=== PATIENT | male | born 1965 | race Caucasian/White ===

== ENCOUNTER 2020-10-15 14:19 | Inpatient (IN) | payer MEDICAID, OTHER ==
[~2020-10-15] VITALS: Ht 180.3 cm; Wt 108.0 kg
[2020-10-15] MEDS ORDERED: cloNIDine HCL 0.1 MG TAB PO ONE (15:00)
[2020-10-15 15:13] LABS: Basophils # (auto) 0.1 10 ^3/uL (0-0.2); Basophils % (auto) 0.8 % (0.0-2.0); Eosinophils # (auto) 0.3 10 ^3/uL (0-0.8); Eosinophils % (auto) 3.5 % (0.0-7.0); Hematocrit 47.1 % (41.0-53.0); Hemoglobin 16.2 g/dL (13.5-17.5); Lymphocytes # (auto) 1.7 10 ^3/uL (0.4-5.4); Lymphocytes % (auto) 22.6 % (10.0-50.0); Mean Corpuscular Hemoglobin 31.7 pg (28.0-32.0); Mean Corpuscular Hgb Conc. 34.4 g/dL (32.0-36.0); Monocytes # (auto) 0.9 10 ^3/uL (0-1.3); Monocytes % (auto) 11.5 % (0.0-12.0); Neutrophils # (auto) 4.6 10 ^3/uL (1.6-8.6); Neutrophils % (auto) 61.6 % (37.0-80.0); Platelet Count (auto) 232 10^3/uL (140-450); Red Blood Cells 5.12 10^6/uL (4.5-5.90); Red Cell Distribution Width 14.8 % (11.8-14.3); White Blood Cell 7.5 10^3/uL (4.4-10.8)
[2020-10-15 15:30] LABS: Alanine Aminotransferase 39 U/L (16-61); Albumin 3.9 g/dL (3.4-5.0); Aspartate Aminotransferase 28 U/L (15-37); BUN/Creatinine Ratio 12.6; Blood Urea Nitrogen 14 mg/dL (7-18); Calcium 8.4 mg/dL (8.5-10.1); Carbon Dioxide 30 mmol/L (21-32); GFR African American 89 mL/min; GFR Non-African American 74 mL/min; Glucose 89 mg/dL (74-106); Magnesium 2.3 mg/dL (1.6-2.6)
[2020-10-15 15:35] LABS: Alkaline Phosphatase 98 U/L (45-117); Bilirubin, Total 0.4 mg/dL (0.2-1.0); Total Protein 7.8 g/dL (6.4-8.2)
[2020-10-15 15:48] LABS: Sodium 141 mmol/L (136-145)
[2020-10-15 15:49] LABS: Anion Gap 6 (5-15); Chloride 105 mmol/L (98-107)
[2020-10-15] MEDS ORDERED: hydrALAZINE HCL 20 MG/ML VL IV ONE (17:15)
[2020-10-15] MEDS ORDERED: MORPHINE SULFATE 4 MG/ML SYR/VIAL IV ONE (17:30)
[2020-10-15] MEDS ORDERED: ONDANSETRON HCL 4 MG/2 ML VIAL IV ONE (17:30)
[2020-10-15] MEDS ORDERED: MORPHINE SULF INJ 2 MG/ML SYRINGE 1ML IV PRN (22:15)
[2020-10-15] MEDS ORDERED: NITROGLYCERIN 0.4 MG SL TAB SL PRN (22:15)
[2020-10-15] MEDS ORDERED: DEXTROSE (50%) 50ML SYRG IV PRN (22:15)
[2020-10-15] MEDS ORDERED: ACETAMINOPHEN 325 MG TAB PO PRN (22:15)
[2020-10-15] MEDS ORDERED: ONDANSETRON HCL 4 MG/2 ML VIAL IV PRN (22:15)
[2020-10-15] MEDS ORDERED: HYDROcodone-ACET 5/325MG TAB PO PRN (22:15)
[2020-10-15 23:01] LABS: Alcohol, Urine < 3.0 mg/dL (0-10); Amphetamine Screen, Urine NEGATIVE (NEGATIVE); Barbiturate Scree,Urine NEGATIVE (NEGATIVE); Benzodiazephine Screen, Urine NEGATIVE (NEGATIVE); Cannabinoid Screen, Urine NEGATIVE (NEGATIVE); Cocaine Screen, Urine NEGATIVE (NEGATIVE); Opiate Scree,Urine POSITIVE (NEGATIVE); Phencyclidine Screen, Urine NEGATIVE (NEGATIVE)
[2020-10-16] VITALS (7 sets, daily range): BP systolic 114–150; BP diastolic 69–111
[2020-10-16] MEDS ORDERED: METF-370 PO (06:23)
[2020-10-16] MEDS ORDERED: SACU1TAB7 PO (06:23)
[2020-10-16] MEDS ORDERED: RIVA20TA PO (06:23)
[2020-10-16] MEDS ORDERED: ASPI-543 PO (06:23)
[2020-10-16] MEDS ORDERED: FURO1TAB31 PO (06:23)
[2020-10-16] MEDS ORDERED: HYDR-4296 PO ×2 (06:23→17:05)
[2020-10-16] MEDS ORDERED: ATO40T PO (06:23)
[2020-10-16] MEDS ORDERED: MET50T GT (06:23)
[2020-10-16] MEDS ORDERED: AMIO200T33 PO (06:23)
[2020-10-16] MEDS: InsuLIN REG 1unit/0.01ml Soln (100units/ml) SC SCH ×3 (06:34→17:00)
[2020-10-16] MEDS: ACCU-CHEK COMFORT CURVE STRIP VI SCH ×3 (06:34→17:00)
[2020-10-16] MEDS ORDERED: LISINOPRIL 10 MG TAB PO SCH (10:00)
[2020-10-16] MEDS ORDERED: METOPROLOL TARTRATE 25 MG TAB PO SCH (10:00)
[2020-10-16] MEDS ORDERED: CLON0.1T PO (17:05)
== END 2020-10-16 18:42 | disposition home or self-care (01) | DRG 45 ==
LOC: ER 14:19 → TELE 21:35 → TELE-EAST 23:41
PROVIDERS: ADMIT Hospitalist; ATTEND Hospitalist
DX: I63.9 Cerebral infarction, unspecified (principal); E11.9 Type 2 diabetes mellitus without complications; I10 Essential (primary) hypertension; Z20.822 Contact with and (suspected) exposure to COVID-19; E78.5 Hyperlipidemia, unspecified; Z79.01 Long term (current) use of anticoagulants; Z79.82 Long term (current) use of aspirin; Z79.899 Other long term (current) drug therapy; Z86.73 Personal history of transient ischemic attack (TIA), and cerebral infarction without residual deficits; Z83.3 Family history of diabetes mellitus; G47.33 Obstructive sleep apnea (adult) (pediatric); E66.9 Obesity, unspecified; R51.9 Headache, unspecified; Z68.33 Body mass index [BMI] 33.0-33.9, adult; I25.2 Old myocardial infarction
CPT/HCPCS: 36415; 70450; 70545; 70551; 71046; 80053; 80307; 82962; 83735; 84484; 85025; 85379; 87081; 87426; 93005; 96374; 96375; G0378; J1815; J2405

== ENCOUNTER 2021-01-18 09:55 | Inpatient (IN) | payer MEDICAID ==
[~2021-01-18] VITALS: Ht 180.3 cm; Wt 109.0 kg
[~2021-01-18 09:55] MED LIST: AMIO200T33 PO; ASPI-543 PO; ATO40T PO; CLON0.1T PO; FURO1TAB31 PO; HYDR-4296 PO; MET50T GT; METF-370 PO; RIVA20TA PO; SACU1TAB7 PO
[2021-01-18] MEDS ORDERED: cloNIDine HCL 0.1 MG TAB PO ONE ×2 (10:30→17:00)
[2021-01-18] MEDS ORDERED: SODIUM CHLORIDE 0.9% 1,000 ML IV ONE ×2 (10:30→18:30)
[2021-01-18] MEDS ORDERED: AMIODARONE HCL 200 MG TAB PO ONE (10:30)
[2021-01-18] MEDS ORDERED: LORazepam 2MG/ML-1ML VIAL IV ONE (15:00)
[2021-01-18] MEDS ORDERED: LABETALOL HCL 5 MG/ML 4ML SYRINGE IV ONE ×2 (15:15→18:00)
[2021-01-18] MEDS ORDERED: MORPHINE SULFATE INJECTION 2 MG/2 ML SYRG IV PRN (18:30)
[2021-01-18] MEDS ORDERED: DIGOXIN (250MCG/ML) 2 ML AMPULE IV PRN (18:30)
[2021-01-18] MEDS ORDERED: AMIODARONE HCL 150 MG in D5W 5% 100 ML IV ONE (18:30)
[2021-01-18] MEDS ORDERED: NITROGLYCERIN 0.4 MG SL TAB SL PRN (18:30)
[2021-01-18 18:31] LABS: Basophils # (auto) 0 10 ^3/uL (0-0.2); Basophils % (auto) 0.6 % (0.0-2.0); Eosinophils # (auto) 0.2 10 ^3/uL (0-0.8); Eosinophils % (auto) 2.5 % (0.0-7.0); Hematocrit 46.2 % (41.0-53.0); Hemoglobin 15.5 g/dL (13.5-17.5); Lymphocytes # (auto) 0.9 10 ^3/uL (0.4-5.4); Lymphocytes % (auto) 14.1 % (10.0-50.0); Mean Corpuscular Hemoglobin 31.4 pg (28.0-32.0); Mean Corpuscular Hgb Conc. 33.6 g/dL (32.0-36.0); Mean Corpuscular Volume 93.3 fL (80.0-100.0); Monocytes # (auto) 0.6 10 ^3/uL (0-1.3); Monocytes % (auto) 10.6 % (0.0-12.0); Neutrophils # (auto) 4.4 10 ^3/uL (1.6-8.6); Neutrophils % (auto) 72.2 % (37.0-80.0); Nucleated Red Blood Cells % 0.1 %; Red Blood Cells 4.95 10^6/uL (4.5-5.90); Red Cell Distribution Width 13.3 % (11.8-14.3); White Blood Cell 6.1 10^3/uL (4.4-10.8)
[2021-01-18] MEDS ORDERED: METOPROLOL TARTRATE 1MG/1ML-5ML VIAL IV PRN (18:45)
[2021-01-18 18:54] LABS: Chloride 104 mmol/L (98-107); Potassium 3.6 mmol/L (3.5-5.1); Sodium 140 mmol/L (136-145)
[2021-01-18 19:04] LABS: Alanine Aminotransferase 30 U/L (16-61); Albumin 2.8 g/dL (3.4-5.0); Alkaline Phosphatase 87 U/L (45-117); Anion Gap 5 (5-15); Aspartate Aminotransferase 20 U/L (15-37); BUN/Creatinine Ratio 13.8; Bilirubin, Total 0.9 mg/dL (0.2-1.0); Blood Urea Nitrogen 18 mg/dL (7-18); Calcium 7.9 mg/dL (8.5-10.1); Carbon Dioxide 31 mmol/L (21-32); GFR African American 74 mL/min; GFR Non-African American 61 mL/min; Glucose 104 mg/dL (74-106); Total Protein 6.4 g/dL (6.4-8.2)
[2021-01-18] MEDS: dilTIAZem 120MG ER CAP PO SCH (21:48)
[2021-01-18] MEDS: LABETALOL HCL 200 MG TAB PO SCH (21:49)
[2021-01-18] MEDS ORDERED: AMIODARONE HCL 200 MG TAB PO SCH (22:00)
[2021-01-19 02:40] LABS: Alcohol, Urine < 3.0 mg/dL (0-10); Amphetamine Screen, Urine POSITIVE (NEGATIVE); Barbiturate Scree,Urine NEGATIVE (NEGATIVE); Benzodiazephine Screen, Urine NEGATIVE (NEGATIVE); Cannabinoid Screen, Urine POSITIVE (NEGATIVE); Cocaine Screen, Urine NEGATIVE (NEGATIVE); Opiate Scree,Urine NEGATIVE (NEGATIVE); Phencyclidine Screen, Urine NEGATIVE (NEGATIVE)
[2021-01-19 02:52] VITALS: BP 126/70
[2021-01-19 03:03] LABS: Urine Bacteria NONE SEEN /hpf (None Seen); Urine Blood Negative /uL (Negative); Urine Specific Gravity 1.022 (1.001-1.035); Urine WBC 5 /hpf (0 - 3)
[2021-01-19 05:00] VITALS: BP 117/65
[2021-01-19 06:31] LABS: INR 1.18 (0.9-1.15); Partial Thromboplastin Time 24.8 sec (23.6-33.0)
[2021-01-19 07:02] LABS: Chloride 106 mmol/L (98-107); Potassium 3.6 mmol/L (3.5-5.1); Sodium 139 mmol/L (136-145)
[2021-01-19 07:13] LABS: Anion Gap 5 (5-15); BUN/Creatinine Ratio 14.3; Blood Urea Nitrogen 14 mg/dL (7-18); Carbon Dioxide 28 mmol/L (21-32); GFR African American 103 mL/min; GFR Non-African American 85 mL/min; Glucose 118 mg/dL (74-106)
[2021-01-19 08:00] VITALS: BP 112/84
[2021-01-19] MEDS: LABETALOL HCL 200 MG TAB PO SCH (10:00)
[2021-01-19] MEDS: dilTIAZem 120MG ER CAP PO SCH (10:08)
[2021-01-19] MEDS ORDERED: SACU1TAB7 PO (10:42)
[2021-01-19] MEDS ORDERED: RIVA20TA PO (10:42)
[2021-01-19] MEDS ORDERED: FURO1TAB31 PO (10:42)
[2021-01-19] MEDS ORDERED: METF-370 PO (10:42)
[2021-01-19] MEDS ORDERED: AMIO200T33 PO (10:42)
[2021-01-19] MEDS ORDERED: HYDR-4296 PO (10:42)
[2021-01-19] MEDS ORDERED: MET50T PO (10:42)
[2021-01-19 16:25] VITALS: BP 112/84
[2021-01-19] MEDS ORDERED: RIVAROXABAN 20 MG TAB PO SCH (18:00)
== END 2021-01-19 18:15 | disposition home or self-care (01) | DRG 201 ==
LOC: ER 09:55 → EDBD 09:55 → TELE 18:25 → TELE-WESTW 23:56
PROVIDERS: ADMIT Hospitalist; ATTEND Hospitalist
DX: I48.92 Unspecified atrial flutter (principal); I11.9 Hypertensive heart disease without heart failure; E11.9 Type 2 diabetes mellitus without complications; I48.20 Chronic atrial fibrillation, unspecified; Z20.822 Contact with and (suspected) exposure to COVID-19; E78.00 Pure hypercholesterolemia, unspecified; F15.10 Other stimulant abuse, uncomplicated; I25.5 Ischemic cardiomyopathy; Z59.0 Homelessness; Z82.49 Family history of ischemic heart disease and other diseases of the circulatory system; Z83.3 Family history of diabetes mellitus; Z86.73 Personal history of transient ischemic attack (TIA), and cerebral infarction without residual deficits; Z91.14 Patient's other noncompliance with medication regimen
CPT/HCPCS: 36415; 71045; 80048; 80053; 80307; 81001; 83880; 84439; 84443; 84484; 85025; 85610; 85730; 87081; 87426; 93005; 93306; 96361; 96374; 96375; G0378; J3490; J7060

== ENCOUNTER 2021-02-09 11:46 | Inpatient (IN) | payer MEDICAID ==
[~2021-02-09] VITALS: Ht 180.3 cm; Wt 112.6 kg
[~2021-02-09 11:46] MED LIST changes: -MET50T GT; +MET50T PO
[2021-02-09] MEDS ORDERED: ONDANSETRON HCL 4 MG/2 ML VIAL IV ONE (12:00)
[2021-02-09] MEDS ORDERED: SODIUM CHLORIDE 0.9% 1,000 ML IVB ONE (12:00)
[2021-02-09] MEDS ORDERED: MORPHINE SULFATE 4 MG/ML SYR/VIAL IV ONE (12:00)
[2021-02-09 12:24] LABS: Basophils # (auto) 0 10 ^3/uL (0-0.2); Basophils % (auto) 0.4 % (0.0-2.0); Eosinophils # (auto) 0.3 10 ^3/uL (0-0.8); Eosinophils % (auto) 4.2 % (0.0-7.0); Hematocrit 49.1 % (41.0-53.0); Hemoglobin 16.2 g/dL (13.5-17.5); Lymphocytes # (auto) 1.4 10 ^3/uL (0.4-5.4); Lymphocytes % (auto) 19.5 % (10.0-50.0); Mean Corpuscular Hemoglobin 30.6 pg (28.0-32.0); Mean Corpuscular Volume 92.8 fL (80.0-100.0); Monocytes # (auto) 0.5 10 ^3/uL (0-1.3); Monocytes % (auto) 6.4 % (0.0-12.0); Neutrophils % (auto) 69.5 % (37.0-80.0); Nucleated Red Blood Cells % 0.1 %; Red Blood Cells 5.29 10^6/uL (4.5-5.90); Red Cell Distribution Width 13.5 % (11.8-14.3); White Blood Cell 7.2 10^3/uL (4.4-10.8)
[2021-02-09 12:36] LABS: Albumin 3.5 g/dL (3.4-5.0); Alcohol, Urine < 3.0 mg/dL (0-10); Amphetamine Screen, Urine NEGATIVE (NEGATIVE); Anion Gap 7 (5-15); Barbiturate Scree,Urine NEGATIVE (NEGATIVE); Benzodiazephine Screen, Urine NEGATIVE (NEGATIVE); Blood Urea Nitrogen 16 mg/dL (7-18); Calcium 8.5 mg/dL (8.5-10.1); Cannabinoid Screen, Urine POSITIVE (NEGATIVE); Carbon Dioxide 26 mmol/L (21-32); Chloride 106 mmol/L (98-107); Cocaine Screen, Urine NEGATIVE (NEGATIVE); Glucose 169 mg/dL (74-106); Lipase 192 U/L (73-393); Magnesium 2.5 mg/dL (1.6-2.6); Opiate Scree,Urine NEGATIVE (NEGATIVE); Phencyclidine Screen, Urine NEGATIVE (NEGATIVE); Potassium 3.4 mmol/L (3.5-5.1); Sodium 139 mmol/L (136-145)
[2021-02-09 12:37] LABS: Urine Bacteria NONE SEEN /hpf (None Seen); Urine Blood Negative /uL (Negative); Urine Mucus FEW (None Seen); Urine Specific Gravity 1.027 (1.001-1.035); Urine WBC 3 /hpf (0 - 3)
[2021-02-09 12:42] LABS: Alanine Aminotransferase 27 U/L (16-61); Alkaline Phosphatase 100 U/L (45-117); Aspartate Aminotransferase 20 U/L (15-37); BUN/Creatinine Ratio 13.4; Bilirubin, Total 0.6 mg/dL (0.2-1.0); GFR African American 82 mL/min; GFR Non-African American 68 mL/min; Total Protein 7.8 g/dL (6.4-8.2)
[2021-02-09] MEDS ORDERED: dilTIAZem 25 MG/5 ML VIAL IV ONE (13:15)
[2021-02-09] MEDS ORDERED: DEXTROSE (50%) 50ML SYRG IV PRN (13:45)
[2021-02-09] MEDS ORDERED: cloNIDine HCL 0.1 MG TAB PO PRN (13:45)
[2021-02-09] MEDS ORDERED: AMIODARONE HCL 150 MG in D5W 5% 100 ML IV ONE (13:45)
[2021-02-09] MEDS ORDERED: NITROGLYCERIN 0.4 MG SL TAB SL PRN (13:45)
[2021-02-09] MEDS ORDERED: MORPHINE SULFATE INJECTION 2 MG/ML SYRG IV PRN ×2 (13:45)
[2021-02-09] MEDS: ACCU-CHEK COMFORT CURVE STRIP VI SCH ×2 (17:00→23:00)
[2021-02-09] MEDS: InsuLIN REG 1unit/0.01ml Soln (100units/ml) SC SCH ×2 (17:00→23:00)
[2021-02-09] MEDS: hydrALAZINE HCL 25 MG TAB PO SCH ×2 (18:08→21:49)
[2021-02-09] MEDS: RIVAROXABAN 20 MG TAB PO SCH (18:13)
[2021-02-09] MEDS ORDERED: LABETALOL HCL 5 MG/ML 4ML SYRINGE IV PRN (19:15)
[2021-02-09] MEDS: METOPROLOL TARTRATE 50 MG TAB PO SCH (21:49)
[2021-02-09] MEDS: AMIODARONE HCL 200 MG TAB PO SCH (21:49)
[2021-02-09 21:58] VITALS: BP 138/110
[2021-02-09 23:00] VITALS: BP 138/110
[2021-02-09] MEDS: MORPHINE SULFATE 4 MG/ML SYR/VIAL IV PRN (23:30)
[2021-02-10] MEDS ORDERED: BUPR1TAB11 PO (02:59)
[2021-02-10 05:00] VITALS: BP 132/106
[2021-02-10] MEDS: hydrALAZINE HCL 25 MG TAB PO SCH ×3 (06:45→21:47)
[2021-02-10] MEDS: ACCU-CHEK COMFORT CURVE STRIP VI SCH ×4 (06:51→21:48)
[2021-02-10] MEDS: InsuLIN REG 1unit/0.01ml Soln (100units/ml) SC SCH ×4 (06:51→21:48)
[2021-02-10] MEDS: MORPHINE SULFATE 4 MG/ML SYR/VIAL IV PRN (06:52)
[2021-02-10 08:00] VITALS: BP 135/93
[2021-02-10 09:00] VITALS: BP 135/93
[2021-02-10] MEDS: AMIODARONE HCL 200 MG TAB PO SCH ×2 (09:41→21:47)
[2021-02-10] MEDS: FUROSEMIDE 40 MG TAB PO SCH (09:41)
[2021-02-10] MEDS: METOPROLOL TARTRATE 50 MG TAB PO SCH ×2 (09:43→21:47)
[2021-02-10] MEDS ORDERED: ASPirin-EC 81 mg tab PO SCH (10:00)
[2021-02-10] MEDS ORDERED: LACTULOSE 20Gm/30ML SOLN PO ONE (12:30)
[2021-02-10 13:00] VITALS: BP_SYST 135; BP_SYST 142; BP_DIAS 88; BP_DIAS 95
[2021-02-10] MEDS: HYDROcodone-ACET 5/325MG TAB PO PRN (13:13)
[2021-02-10 17:00] VITALS: BP 160/77
[2021-02-10] MEDS: RIVAROXABAN 20 MG TAB PO SCH (17:18)
[2021-02-10] MEDS: SENNA 8.6 MG TAB PO SCH (21:46)
[2021-02-10 22:00] VITALS: BP 152/111
[2021-02-11 05:00] VITALS: BP 157/118
[2021-02-11] MEDS: hydrALAZINE HCL 25 MG TAB PO SCH ×3 (06:15→21:33)
[2021-02-11] MEDS: ACCU-CHEK COMFORT CURVE STRIP VI SCH ×4 (06:57→21:34)
[2021-02-11] MEDS: InsuLIN REG 1unit/0.01ml Soln (100units/ml) SC SCH ×4 (06:57→21:34)
[2021-02-11 08:00] VITALS: BP 146/75
[2021-02-11 09:00] VITALS: BP 146/75
[2021-02-11] MEDS: FUROSEMIDE 40 MG TAB PO SCH (10:16)
[2021-02-11] MEDS: METOPROLOL TARTRATE 50 MG TAB PO SCH ×2 (10:16→21:34)
[2021-02-11] MEDS: AMIODARONE HCL 200 MG TAB PO SCH ×2 (10:17→21:34)
[2021-02-11] MEDS: HYDROcodone-ACET 5/325MG TAB PO PRN (10:22)
[2021-02-11] MEDS ORDERED: SENN-62 PO (10:32)
[2021-02-11 13:00] VITALS: BP_SYST 114; BP_SYST 143; BP_DIAS 84; BP_DIAS 90
[2021-02-11 17:00] VITALS: BP 147/113
[2021-02-11] MEDS: RIVAROXABAN 20 MG TAB PO SCH (17:02)
[2021-02-11] MEDS: SENNA 8.6 MG TAB PO SCH (21:34)
[2021-02-11 22:00] VITALS: BP 175/119
[2021-02-12] MEDS ORDERED: ACETAMINOPHEN 325 MG TAB PO PRN (02:45)
[2021-02-12] MEDS ORDERED: ACETAMINOPHEN 325 MG TAB PO ONE (02:48)
[2021-02-12 05:00] VITALS: BP 140/98
[2021-02-12] MEDS: hydrALAZINE HCL 25 MG TAB PO SCH ×2 (06:00→14:03)
[2021-02-12] MEDS: InsuLIN REG 1unit/0.01ml Soln (100units/ml) SC SCH ×2 (06:39→11:30)
[2021-02-12] MEDS: ACCU-CHEK COMFORT CURVE STRIP VI SCH ×2 (06:39→11:30)
[2021-02-12 08:11] LABS: Basophils # (auto) 0 10 ^3/uL (0-0.2); Eosinophils # (auto) 0.7 10 ^3/uL (0-0.8); Eosinophils % (auto) 8.2 % (0.0-7.0); Hematocrit 49.9 % (41.0-53.0); Hemoglobin 16.6 g/dL (13.5-17.5); Lymphocytes # (auto) 0.7 10 ^3/uL (0.4-5.4); Lymphocytes % (auto) 8.2 % (10.0-50.0); Mean Corpuscular Hemoglobin 30.5 pg (28.0-32.0); Mean Corpuscular Hgb Conc. 33.2 g/dL (32.0-36.0); Mean Corpuscular Volume 91.8 fL (80.0-100.0); Monocytes # (auto) 0.5 10 ^3/uL (0-1.3); Monocytes % (auto) 5.9 % (0.0-12.0); Neutrophils # (auto) 6.2 10 ^3/uL (1.6-8.6); Neutrophils % (auto) 77.7 % (37.0-80.0); Red Blood Cells 5.43 10^6/uL (4.5-5.90); Red Cell Distribution Width 13.4 % (11.8-14.3)
[2021-02-12 08:15] LABS: BUN/Creatinine Ratio 15.5; Calcium 8.4 mg/dL (8.5-10.1)
[2021-02-12 08:34] LABS: INR 1.26 (0.9-1.15)
[2021-02-12 08:57] VITALS: BP 156/113
[2021-02-12] MEDS: METOPROLOL TARTRATE 50 MG TAB PO SCH (10:00)
[2021-02-12] MEDS: FUROSEMIDE 40 MG TAB PO SCH (10:00)
[2021-02-12] MEDS: AMIODARONE HCL 200 MG TAB PO SCH (10:00)
[2021-02-12 13:00] VITALS: BP 161/123
[2021-02-12] MEDS ORDERED: MET50T PO (15:17)
[2021-02-12] MEDS ORDERED: AMIO200T33 PO (15:17)
[2021-02-12 17:00] VITALS: BP 160/108
[2021-02-12 17:20] VITALS: BP 156/123
== END 2021-02-12 18:24 | disposition home or self-care (01) | DRG 254 ==
LOC: ER 11:46 → UNDOADMIN 13:32 → TELE-WESTW 13:32 → OVERFLOW 14:14 → TELE-WESTW 22:06
PROVIDERS: ADMIT Hospitalist; ATTEND Hospitalist
DX: K59.00 Constipation, unspecified (principal); I11.0 Hypertensive heart disease with heart failure; I50.9 Heart failure, unspecified; I48.20 Chronic atrial fibrillation, unspecified; E11.9 Type 2 diabetes mellitus without complications; I48.92 Unspecified atrial flutter; Z20.822 Contact with and (suspected) exposure to COVID-19; K80.20 Calculus of gallbladder without cholecystitis without obstruction; F15.10 Other stimulant abuse, uncomplicated; E66.9 Obesity, unspecified; F19.10 Other psychoactive substance abuse, uncomplicated; Z68.34 Body mass index [BMI] 34.0-34.9, adult; Z59.0 Homelessness; Z82.49 Family history of ischemic heart disease and other diseases of the circulatory system; Z86.73 Personal history of transient ischemic attack (TIA), and cerebral infarction without residual deficits; Z90.49 Acquired absence of other specified parts of digestive tract
CPT/HCPCS: 36415; 74176; 80048; 80053; 80307; 81001; 82962; 83690; 83735; 84484; 85025; 85610; 85730; 86850; 86900; 86901; 87081; 87426; 93005; 93925; 96365; 96375; G0378; J2405; J7060

== ENCOUNTER 2021-04-30 07:20 | Inpatient (IN) | payer MEDICAID ==
[~2021-04-30] VITALS: Ht 180.3 cm; Wt 117.0 kg
[~2021-04-30 07:20] MED LIST changes: +BUPR1TAB11 PO; +SENN-62 PO
[2021-04-30] MEDS ORDERED: SODIUM CHLORIDE 0.9% 1,000 ML IV ONE (07:45)
[2021-04-30 08:15] LABS: Basophils # (auto) 0 10 ^3/uL (0-0.2); Basophils % (auto) 0.4 % (0.0-2.0); Eosinophils # (auto) 0.2 10 ^3/uL (0-0.8); Eosinophils % (auto) 2.1 % (0.0-7.0); Hematocrit 45.7 % (41.0-53.0); Hemoglobin 15.4 g/dL (13.5-17.5); Lymphocytes # (auto) 0.9 10 ^3/uL (0.4-5.4); Lymphocytes % (auto) 8.2 % (10.0-50.0); Mean Corpuscular Hemoglobin 30.9 pg (28.0-32.0); Mean Corpuscular Hgb Conc. 33.7 g/dL (32.0-36.0); Mean Corpuscular Volume 91.8 fL (80.0-100.0); Monocytes # (auto) 0.7 10 ^3/uL (0-1.3); Monocytes % (auto) 6.4 % (0.0-12.0); Neutrophils # (auto) 8.9 10 ^3/uL (1.6-8.6); Neutrophils % (auto) 82.9 % (37.0-80.0); Red Blood Cells 4.98 10^6/uL (4.5-5.90); Red Cell Distribution Width 14.3 % (11.8-14.3); White Blood Cell 10.8 10^3/uL (4.4-10.8)
[2021-04-30 08:32] LABS: INR 1.18 (0.9-1.15); Partial Thromboplastin Time 24.9 sec (23.6-33.0)
[2021-04-30 08:33] LABS: Albumin 3.5 g/dL (3.4-5.0); Calcium 8.3 mg/dL (8.5-10.1); Potassium 3.9 mmol/L (3.5-5.1)
[2021-04-30 08:39] LABS: BUN/Creatinine Ratio 15.2; Bilirubin, Total 0.7 mg/dL (0.2-1.0)
[2021-04-30] MEDS ORDERED: ONDANSETRON HCL 4 MG/2 ML VIAL IV ONE (10:00)
[2021-04-30] MEDS ORDERED: MORPHINE SULFATE INJECTION 2 MG/ML SYRG IV ONE (10:00)
[2021-04-30] MEDS ORDERED: LORazepam 2MG/ML-1ML VIAL IV ONE (13:30)
[2021-04-30] MEDS ORDERED: dilTIAZem 25 MG/5 ML VIAL IV ONE (13:30)
[2021-04-30] MEDS ORDERED: dilTIAZem 125mg/125ml BAG KIT 125 ML IV ONE (13:30)
[2021-04-30] MEDS ORDERED: METOPROLOL TARTRATE 1MG/1ML-5ML VIAL IV ONE (13:30)
[2021-04-30] MEDS ORDERED: MORPHINE SULFATE 4 MG/ML SYR/VIAL IV ONE (13:30)
[2021-04-30] MEDS ORDERED: DIGOXIN (250MCG/ML) 2 ML AMPULE IV PRN (14:45)
[2021-04-30] MEDS ORDERED: ONDANSETRON HCL 4 MG/2 ML VIAL IV PRN (14:45)
[2021-04-30] MEDS ORDERED: NITROGLYCERIN 0.4 MG SL TAB SL PRN (14:45)
[2021-04-30] MEDS ORDERED: METOPROLOL TARTRATE 25 MG TAB PO ONE (14:45)
[2021-04-30] MEDS ORDERED: MORPHINE SULFATE INJECTION 2 MG/ML SYRG IV PRN (14:45)
[2021-04-30] MEDS: HYDROcodone-ACET 5/325MG TAB PO PRN (21:02)
[2021-04-30 21:07] LABS: Urine Bacteria NONE SEEN /hpf (None Seen); Urine Blood Negative /uL (Negative); Urine Hyaline Cast FEW /lpf (0 - 2); Urine Mucus FEW (None Seen); Urine WBC 6 /hpf (0 - 3)
[2021-04-30 21:27] LABS: Alcohol, Urine < 3.0 mg/dL (0-10); Amphetamine Screen, Urine NEGATIVE (NEGATIVE); Barbiturate Scree,Urine NEGATIVE (NEGATIVE); Benzodiazephine Screen, Urine NEGATIVE (NEGATIVE); Cannabinoid Screen, Urine NEGATIVE (NEGATIVE); Cocaine Screen, Urine NEGATIVE (NEGATIVE); Opiate Scree,Urine POSITIVE (NEGATIVE); Phencyclidine Screen, Urine NEGATIVE (NEGATIVE)
[2021-04-30] MEDS: METOPROLOL TARTRATE 25 MG TAB PO SCH (23:00)
[2021-05-01] MEDS: HYDROcodone-ACET 5/325MG TAB PO PRN ×3 (03:11→15:11)
[2021-05-01] MEDS: ASPirin-EC 81 mg tab PO SCH (10:07)
[2021-05-01] MEDS: METOPROLOL TARTRATE 25 MG TAB PO SCH ×2 (10:20→23:09)
[2021-05-01] MEDS ORDERED: BUPR-60 PO (13:57)
[2021-05-01] MEDS ORDERED: HYDR25TA87 PO (13:57)
[2021-05-01] MEDS ORDERED: METO-158 PO (13:57)
[2021-05-01] MEDS ORDERED: ATOR40TA52 PO (13:57)
[2021-05-01] MEDS ORDERED: FLUT110A INH (13:57)
[2021-05-01] MEDS ORDERED: CLON0.1T PO (13:58)
[2021-05-01 22:00] VITALS: BP 136/98
[2021-05-01] MEDS: cloNIDine HCL 0.1 MG TAB PO SCH (23:05)
[2021-05-01] MEDS: hydrALAZINE HCL 25 MG TAB PO SCH (23:06)
[2021-05-01] MEDS: AMIODARONE HCL 200 MG TAB PO SCH (23:08)
[2021-05-01] MEDS: SACUBITRIL-VALSARTAN 24mg/26mg TAB PO SCH (23:10)
[2021-05-02] MEDS: HYDROcodone-ACET 5/325MG TAB PO PRN ×2 (00:05→05:01)
[2021-05-02 04:57] VITALS: BP 124/84
[2021-05-02] MEDS: hydrALAZINE HCL 25 MG TAB PO SCH ×2 (05:47→18:27)
[2021-05-02 09:00] VITALS: BP 136/73
[2021-05-02] MEDS: SACUBITRIL-VALSARTAN 24mg/26mg TAB PO SCH (10:16)
[2021-05-02] MEDS: ASPirin-EC 81 mg tab PO SCH (10:16)
[2021-05-02] MEDS: AMIODARONE HCL 200 MG TAB PO SCH (10:16)
[2021-05-02] MEDS: cloNIDine HCL 0.1 MG TAB PO SCH (10:16)
[2021-05-02] MEDS: METOPROLOL TARTRATE 25 MG TAB PO SCH (10:17)
[2021-05-02 12:57] VITALS: BP 118/83
[2021-05-02] MEDS ORDERED: AMIO200T33 PO (15:56)
[2021-05-02] MEDS ORDERED: METO-158 PO (15:56)
[2021-05-02] MEDS ORDERED: HYDR25TA87 PO (15:56)
[2021-05-02 17:13] VITALS: BP 134/82
[2021-05-02] MEDS ORDERED: ATORVASTATIN 20 MG TAB PO SCH (22:00)
== END 2021-05-02 18:42 | disposition home or self-care (01) | DRG 115 ==
LOC: ER 07:20 → EDSEX 07:20 → EDBD 07:20 → TELE 14:48 → TELE-CENTR 05-01 20:32
PROVIDERS: ADMIT Hospitalist; ATTEND Hospitalist
DX: S09.90XA Unspecified injury of head, initial encounter (principal); I11.0 Hypertensive heart disease with heart failure; I50.9 Heart failure, unspecified; I48.20 Chronic atrial fibrillation, unspecified; I95.1 Orthostatic hypotension; E66.9 Obesity, unspecified; S00.01XA Abrasion of scalp, initial encounter; E11.9 Type 2 diabetes mellitus without complications; Z20.822 Contact with and (suspected) exposure to COVID-19; Z59.00 Homelessness unspecified; W18.39XA Other fall on same level, initial encounter; Z82.49 Family history of ischemic heart disease and other diseases of the circulatory system; Z83.3 Family history of diabetes mellitus; Z86.73 Personal history of transient ischemic attack (TIA), and cerebral infarction without residual deficits; Z90.49 Acquired absence of other specified parts of digestive tract; Z68.34 Body mass index [BMI] 34.0-34.9, adult; Y93.89 Activity, other specified; Y92.090 Kitchen in other non-institutional residence as the place of occurrence of the external cause; Y99.8 Other external cause status
CPT/HCPCS: 36415; 70450; 70551; 71045; 71275; 72125; 80053; 80307; 81001; 84484; 85025; 85379; 85610; 85730; 87426; 93005; 96361; 96374; 96375; 99291; G0378; J2405

== ENCOUNTER 2021-06-03 16:16 | Inpatient (IN) | payer MEDICAID ==
[~2021-06-03] VITALS: Ht 180.3 cm; Wt 113.4 kg
[~2021-06-03 16:16] MED LIST changes: -ASPI-543 PO; -ATO40T PO; +ATOR40TA52 PO; +BUPR-60 PO; -BUPR1TAB11 PO; +FLUT110A INH; -FURO1TAB31 PO; -HYDR-4296 PO; +HYDR25TA87 PO; -MET50T PO; +METO-158 PO; -RIVA20TA PO; -SACU1TAB7 PO; -SENN-62 PO
[2021-06-03] MEDS ORDERED: dilTIAZem 125mg/125ml BAG KIT 125 ML IV ONE ×2 (17:20→17:30)
[2021-06-03] MEDS ORDERED: InsuLIN REG 1unit/0.01ml Soln (100units/ml) IV ONE (17:30)
[2021-06-03] MEDS ORDERED: SODIUM CHLORIDE 0.9% 1,000 ML IV ONE (17:30)
[2021-06-03] MEDS ORDERED: dilTIAZem 25 MG/5 ML VIAL IV ONE (17:30)
[2021-06-03 18:15] LABS: INR 1.08 (0.9-1.15); Partial Thromboplastin Time 24.9 sec (23.6-33.0)
[2021-06-03 18:25] LABS: Basophils # (auto) 0 10 ^3/uL (0-0.2); Basophils % (auto) 0.3 % (0.0-2.0); Eosinophils # (auto) 0.1 10 ^3/uL (0-0.8); Eosinophils % (auto) 1.5 % (0.0-7.0); Hematocrit 46.8 % (41.0-53.0); Hemoglobin 15.7 g/dL (13.5-17.5); Lymphocytes # (auto) 1.1 10 ^3/uL (0.4-5.4); Mean Corpuscular Hemoglobin 31.3 pg (28.0-32.0); Mean Corpuscular Hgb Conc. 33.4 g/dL (32.0-36.0); Mean Corpuscular Volume 93.5 fL (80.0-100.0); Monocytes # (auto) 0.7 10 ^3/uL (0-1.3); Monocytes % (auto) 7.4 % (0.0-12.0); Neutrophils # (auto) 7.5 10 ^3/uL (1.6-8.6); Neutrophils % (auto) 78.8 % (37.0-80.0); Nucleated Red Blood Cells % 0.7 %; Red Blood Cells 5.01 10^6/uL (4.5-5.90); Red Cell Distribution Width 13.5 % (11.8-14.3); White Blood Cell 9.5 10^3/uL (4.4-10.8)
[2021-06-03 18:35] LABS: Albumin 3.9 g/dL (3.4-5.0); Calcium 8.7 mg/dL (8.5-10.1); Magnesium 3.1 mg/dL (1.6-2.6); Potassium 3.9 mmol/L (3.5-5.1)
[2021-06-03 18:38] LABS: BUN/Creatinine Ratio 14.9; Bilirubin, Total 0.6 mg/dL (0.2-1.0); Total Protein 7.6 g/dL (6.4-8.2)
[2021-06-03] MEDS ORDERED: ENOXAPARIN SOD 120 MG/0.8 ML SYRINGE SC ONE (18:45)
[2021-06-03] MEDS ORDERED: HYDROcodone-ACET 5/325MG TAB PO PRN (19:00)
[2021-06-03] MEDS ORDERED: ACETAMINOPHEN 325 MG TAB PO PRN (19:00)
[2021-06-03] MEDS ORDERED: MORPHINE SULFATE INJECTION 2 MG/ML SYRG IV PRN ×2 (19:00)
[2021-06-03] MEDS ORDERED: ONDANSETRON HCL 4 MG/2 ML VIAL IV PRN (19:00)
[2021-06-03] MEDS ORDERED: NITROGLYCERIN 0.4 MG SL TAB SL PRN (19:00)
[2021-06-03] MEDS ORDERED: hydrALAZINE HCL 20 MG/ML VL IV PRN (19:15)
[2021-06-03] MEDS: SODIUM CHLORIDE 0.9% 1,000 ML IV SCH (19:30)
[2021-06-03 20:50] LABS: Urine Bacteria NONE SEEN /hpf (None Seen); Urine Blood Negative /uL (Negative); Urine Specific Gravity 1.034 (1.001-1.035); Urine WBC 2 /hpf (0 - 3)
[2021-06-03 21:32] LABS: Alcohol, Urine < 3.0 mg/dL (0-10); Amphetamine Screen, Urine NEGATIVE (NEGATIVE); Barbiturate Scree,Urine NEGATIVE (NEGATIVE); Benzodiazephine Screen, Urine NEGATIVE (NEGATIVE); Cannabinoid Screen, Urine NEGATIVE (NEGATIVE); Cocaine Screen, Urine NEGATIVE (NEGATIVE); Opiate Scree,Urine NEGATIVE (NEGATIVE); Phencyclidine Screen, Urine NEGATIVE (NEGATIVE)
[2021-06-03] MEDS: AMIODARONE HCL 200 MG TAB PO SCH (22:04)
[2021-06-03] MEDS: cloNIDine HCL 0.1 MG TAB PO SCH (22:04)
[2021-06-03] MEDS: METOPROLOL TARTRATE 25 MG TAB PO SCH (22:05)
[2021-06-03] MEDS ORDERED: ENALAPRILAT 1.25 MG/ML-1ML VIAL IV ONE (23:30)
[2021-06-04] MEDS: cloNIDine HCL 0.1 MG TAB PO SCH (09:33)
[2021-06-04] MEDS: AMIODARONE HCL 200 MG TAB PO SCH (09:33)
[2021-06-04] MEDS: METOPROLOL TARTRATE 25 MG TAB PO SCH (09:34)
[2021-06-04] MEDS ORDERED: ENOXAPARIN SOD 120 MG/0.8 ML SYRINGE SC SCH (10:00)
[2021-06-04 11:00] LABS: Basophils # (auto) 0 10 ^3/uL (0-0.2); Basophils % (auto) 0.5 % (0.0-2.0); Eosinophils # (auto) 0.2 10 ^3/uL (0-0.8); Eosinophils % (auto) 2.5 % (0.0-7.0); Hematocrit 41.6 % (41.0-53.0); Hemoglobin 13.8 g/dL (13.5-17.5); Lymphocytes # (auto) 0.9 10 ^3/uL (0.4-5.4); Mean Corpuscular Hgb Conc. 33.2 g/dL (32.0-36.0); Mean Corpuscular Volume 93.5 fL (80.0-100.0); Monocytes # (auto) 0.3 10 ^3/uL (0-1.3); Monocytes % (auto) 5.2 % (0.0-12.0); Neutrophils # (auto) 4.7 10 ^3/uL (1.6-8.6); Neutrophils % (auto) 76.8 % (37.0-80.0); Red Blood Cells 4.45 10^6/uL (4.5-5.90); Red Cell Distribution Width 13.4 % (11.8-14.3); White Blood Cell 6.1 10^3/uL (4.4-10.8)
[2021-06-04 11:16] LABS: Albumin 3.2 g/dL (3.4-5.0); Potassium 4.1 mmol/L (3.5-5.1)
[2021-06-04 11:22] LABS: BUN/Creatinine Ratio 14.2; Bilirubin, Total 0.9 mg/dL (0.2-1.0); Total Protein 6.2 g/dL (6.4-8.2)
[2021-06-04] MEDS: SODIUM CHLORIDE 0.9% 1,000 ML IV SCH (11:41)
[2021-06-04 14:40] VITALS: BP 149/114
[2021-06-04] MEDS ORDERED: AMIO200T33 PO (14:59)
[2021-06-04] MEDS ORDERED: ATORVASTATIN 20 MG TAB PO SCH (22:00)
== END 2021-06-04 15:01 | disposition home or self-care (01) | DRG 201 ==
LOC: ER 16:16 → TELE 18:57
PROVIDERS: ADMIT Internal Medicine; ATTEND Internal Medicine
DX: I48.91 Unspecified atrial fibrillation (principal); I42.9 Cardiomyopathy, unspecified; G47.30 Sleep apnea, unspecified; E11.9 Type 2 diabetes mellitus without complications; I16.0 Hypertensive urgency; E78.5 Hyperlipidemia, unspecified; F12.90 Cannabis use, unspecified, uncomplicated; F17.210 Nicotine dependence, cigarettes, uncomplicated; I10 Essential (primary) hypertension; Z20.822 Contact with and (suspected) exposure to COVID-19; E66.9 Obesity, unspecified; R00.0 Tachycardia, unspecified; Z86.73 Personal history of transient ischemic attack (TIA), and cerebral infarction without residual deficits; Z59.00 Homelessness unspecified; Z79.899 Other long term (current) drug therapy; Z82.49 Family history of ischemic heart disease and other diseases of the circulatory system; Z83.3 Family history of diabetes mellitus; Z90.49 Acquired absence of other specified parts of digestive tract; Z68.34 Body mass index [BMI] 34.0-34.9, adult; Z79.01 Long term (current) use of anticoagulants
CPT/HCPCS: 36415; 70450; 71045; 80053; 80307; 81001; 82962; 83735; 83880; 84484; 85025; 85610; 85730; 87426; 93005; 93306; 96365; 96376; 99291; G0378

== ENCOUNTER 2021-06-15 03:34 | Emergency (ER) | payer MEDICAID ==
[~2021-06-15] VITALS: Ht 170.2 cm; Wt 113.9 kg
[2021-06-15] MEDS ORDERED: dilTIAZem 25 MG/5 ML VIAL IV ONE ×4 (03:55→14:30)
[2021-06-15 04:44] LABS: Basophils # (auto) 0 10 ^3/uL (0-0.2); Basophils % (auto) 0.4 % (0.0-2.0); Eosinophils # (auto) 0.1 10 ^3/uL (0-0.8); Eosinophils % (auto) 0.6 % (0.0-7.0); Hematocrit 48.9 % (41.0-53.0); Hemoglobin 16.1 g/dL (13.5-17.5); Lymphocytes # (auto) 0.8 10 ^3/uL (0.4-5.4); Lymphocytes % (auto) 10.5 % (10.0-50.0); Mean Corpuscular Hemoglobin 30.8 pg (28.0-32.0); Mean Corpuscular Hgb Conc. 32.9 g/dL (32.0-36.0); Mean Corpuscular Volume 93.6 fL (80.0-100.0); Monocytes # (auto) 0.4 10 ^3/uL (0-1.3); Monocytes % (auto) 5.3 % (0.0-12.0); Neutrophils # (auto) 6.7 10 ^3/uL (1.6-8.6); Neutrophils % (auto) 83.2 % (37.0-80.0); Nucleated Red Blood Cells % 0.1 %; Red Blood Cells 5.22 10^6/uL (4.5-5.90); Red Cell Distribution Width 12.8 % (11.8-14.3); White Blood Cell 8.1 10^3/uL (4.4-10.8)
[2021-06-15 05:01] LABS: Calcium 8.8 mg/dL (8.5-10.1); Potassium 4.1 mmol/L (3.5-5.1)
[2021-06-15 05:06] LABS: Bilirubin, Total 0.8 mg/dL (0.2-1.0); Total Protein 7.5 g/dL (6.4-8.2)
[2021-06-15 05:33] LABS: BUN/Creatinine Ratio 10.7
[2021-06-15] MEDS ORDERED: SODIUM CHLORIDE 0.9% 2,000 ML IV ONE (05:45)
[2021-06-15] MEDS ORDERED: InsuLIN REG 1unit/0.01ml Soln (100units/ml) IV ONE (05:45)
[2021-06-15 07:58] LABS: Alcohol, Urine < 3.0 mg/dL (0-10); Amphetamine Screen, Urine NEGATIVE (NEGATIVE); Barbiturate Scree,Urine NEGATIVE (NEGATIVE); Benzodiazephine Screen, Urine NEGATIVE (NEGATIVE); Cannabinoid Screen, Urine NEGATIVE (NEGATIVE); Cocaine Screen, Urine NEGATIVE (NEGATIVE); Opiate Scree,Urine NEGATIVE (NEGATIVE); Phencyclidine Screen, Urine NEGATIVE (NEGATIVE)
[2021-06-15 10:21] LABS: Calcium 8.4 mg/dL (8.5-10.1); Potassium 3.7 mmol/L (3.5-5.1)
[2021-06-15 10:26] LABS: Albumin 3.4 g/dL (3.4-5.0); BUN/Creatinine Ratio 11.4; Total Protein 6.6 g/dL (6.4-8.2)
[2021-06-15] MEDS ORDERED: dilTIAZem 120MG ER CAP PO ONE (14:30)
[2021-06-15 15:29] VITALS: BP 150/99
== END 2021-06-15 16:00 | disposition home or self-care (01) ==
LOC: ER 03:34
DX: H91.90 Unspecified hearing loss, unspecified ear (principal); I48.0 Paroxysmal atrial fibrillation; E11.65 Type 2 diabetes mellitus with hyperglycemia; E78.5 Hyperlipidemia, unspecified; I10 Essential (primary) hypertension; Z86.73 Personal history of transient ischemic attack (TIA), and cerebral infarction without residual deficits; Z90.49 Acquired absence of other specified parts of digestive tract; Z79.899 Other long term (current) drug therapy
CPT/HCPCS: 36415; 70450; 71045; 80053; 80307; 82962; 85025; 93005; 96361; 96374; 96375; 96376; 99285; J1815; J7030

== ENCOUNTER 2021-06-16 20:04 | Emergency (ER) | payer MEDICAID ==
[~2021-06-16] VITALS: Ht 180.3 cm; Wt 112.7 kg
[2021-06-16] MEDS ORDERED: LABETALOL HCL 5 MG/ML 4ML SYRINGE IV STA (21:14)
[2021-06-16] MEDS ORDERED: ASPirin 81 mg TAB PO ONE (21:15)
[2021-06-16 22:19] LABS: Basophils # (auto) 0 10 ^3/uL (0-0.2); Basophils % (auto) 0.6 % (0.0-2.0); Eosinophils # (auto) 0.1 10 ^3/uL (0-0.8); Eosinophils % (auto) 2.1 % (0.0-7.0); Hematocrit 47.5 % (41.0-53.0); Hemoglobin 15.8 g/dL (13.5-17.5); Lymphocytes # (auto) 1.2 10 ^3/uL (0.4-5.4); Lymphocytes % (auto) 17.5 % (10.0-50.0); Mean Corpuscular Hemoglobin 30.5 pg (28.0-32.0); Mean Corpuscular Hgb Conc. 33.3 g/dL (32.0-36.0); Mean Corpuscular Volume 91.7 fL (80.0-100.0); Monocytes # (auto) 0.7 10 ^3/uL (0-1.3); Monocytes % (auto) 9.3 % (0.0-12.0); Neutrophils % (auto) 70.5 % (37.0-80.0); Nucleated Red Blood Cells % 0.1 %; Red Blood Cells 5.17 10^6/uL (4.5-5.90); Red Cell Distribution Width 12.9 % (11.8-14.3)
[2021-06-16 22:36] LABS: Albumin 3.6 g/dL (3.4-5.0); Calcium 8.4 mg/dL (8.5-10.1)
[2021-06-16 22:44] LABS: Bilirubin, Total 0.6 mg/dL (0.2-1.0)
[2021-06-17] MEDS ORDERED: LABETALOL HCL 200 MG TAB PO ONE (02:00)
[2021-06-17] MEDS ORDERED: dilTIAZem 25 MG/5 ML VIAL IV ONE (02:00)
[2021-06-17 06:23] VITALS: BP 166/112
== END 2021-06-17 07:46 | disposition home or self-care (01) ==
LOC: ER 20:09
DX: H93.13 Tinnitus, bilateral (principal); R07.9 Chest pain, unspecified; E11.9 Type 2 diabetes mellitus without complications; E78.5 Hyperlipidemia, unspecified; Z86.73 Personal history of transient ischemic attack (TIA), and cerebral infarction without residual deficits; Z87.891 Personal history of nicotine dependence; Z59.00 Homelessness unspecified
CPT/HCPCS: 36415; 71046; 80053; 84484; 85025; 93005; 96374; 99285; J3490

== ENCOUNTER 2021-07-11 17:43 | Inpatient (IN) | payer MEDICAID ==
[~2021-07-11] VITALS: Ht 180.3 cm; Wt 108.9 kg
[2021-07-11] MEDS ORDERED: CLINDAMYCIN 900MG IV 50 ML IV ONE (19:15)
[2021-07-11] MEDS ORDERED: IOHEXOL 300 MG/ML 100ML BOTTLE IJ ONE (20:10)
[2021-07-11 20:24] LABS: Albumin 3.4 g/dL (3.4-5.0); Potassium 3.8 mmol/L (3.5-5.1)
[2021-07-11 20:29] LABS: Bilirubin, Total 0.4 mg/dL (0.2-1.0); Total Protein 6.6 g/dL (6.4-8.2)
[2021-07-11 20:41] LABS: Basophils # (auto) 0 10 ^3/uL (0-0.2); Basophils % (auto) 0.5 % (0.0-2.0); Eosinophils # (auto) 0.1 10 ^3/uL (0-0.8); Eosinophils % (auto) 1.7 % (0.0-7.0); Hematocrit 47.7 % (41.0-53.0); Lymphocytes % (auto) 16.2 % (10.0-50.0); Mean Corpuscular Hemoglobin 30.6 pg (28.0-32.0); Mean Corpuscular Hgb Conc. 33.5 g/dL (32.0-36.0); Mean Corpuscular Volume 91.1 fL (80.0-100.0); Monocytes # (auto) 0.6 10 ^3/uL (0-1.3); Monocytes % (auto) 9.4 % (0.0-12.0); Neutrophils # (auto) 4.7 10 ^3/uL (1.6-8.6); Neutrophils % (auto) 72.2 % (37.0-80.0); Nucleated Red Blood Cells % 0.1 %; Red Blood Cells 5.23 10^6/uL (4.5-5.90); Red Cell Distribution Width 12.9 % (11.8-14.3); White Blood Cell 6.5 10^3/uL (4.4-10.8)
[2021-07-11 20:50] LABS: BUN/Creatinine Ratio 10.6
[2021-07-11] MEDS ORDERED: InsuLIN REG 1unit/0.01ml Soln (100units/ml) IV ONE (21:00)
[2021-07-11] MEDS ORDERED: SOD CHL 0.45% 1,000 ML IV ONE (21:00)
[2021-07-11] MEDS ORDERED: NITROGLYCERIN 0.4 MG SL TAB SL PRN (23:45)
[2021-07-11] MEDS ORDERED: VANCOMYCIN 1GM/250ML 250 ML IV ONE (23:45)
[2021-07-11] MEDS ORDERED: MORPHINE SULFATE INJECTION 2 MG/ML SYRG IV PRN ×2 (23:45)
[2021-07-11] MEDS ORDERED: VANCOMYCIN PER PHARMACY 0 MG IV SCH (23:45)
[2021-07-11] MEDS ORDERED: DEXTROSE (50%) 50ML SYRG IV PRN (23:45)
[2021-07-11] MEDS ORDERED: ONDANSETRON HCL 4 MG/2 ML VIAL IV PRN (23:45)
[2021-07-12] MEDS ORDERED: SODIUM CHLORIDE 0.9% 1,000 ML IV ONE (00:30)
[2021-07-12] MEDS ORDERED: dilTIAZem 25 MG/5 ML VIAL IV ONE (00:30)
[2021-07-12] MEDS ORDERED: dilTIAZem 125mg/125ml BAG KIT 125 ML IV ONE (00:41)
[2021-07-12] MEDS: dilTIAZem 125mg/125ml BAG KIT 100 ML IV SCH ×3 (00:53→21:15)
[2021-07-12] MEDS ORDERED: HEPARIN SODIUM (PORCINE) 5000 UNITS/ML 1ML VIAL IV ONE (01:00)
[2021-07-12 01:31] LABS: INR 1.19 (0.9-1.15); Partial Thromboplastin Time 25.1 sec (23.6-33.0)
[2021-07-12] MEDS ORDERED: HEPARIN SODIUM (PORCINE) 5000 UNITS/ML 1ML VIAL ONE (01:32)
[2021-07-12 01:48] LABS: Basophils # (auto) 0 10 ^3/uL (0-0.2); Eosinophils # (auto) 0.1 10 ^3/uL (0-0.8); Eosinophils % (auto) 2.1 % (0.0-7.0); Lymphocytes # (auto) 1.4 10 ^3/uL (0.4-5.4); Monocytes # (auto) 0.6 10 ^3/uL (0-1.3); Nucleated Red Blood Cells % 0.1 %; Red Blood Cells 4.95 10^6/uL (4.5-5.90)
[2021-07-12 01:51] LABS: Basophils % (auto) 0.4 % (0.0-2.0); Hematocrit 44.8 % (41.0-53.0); Hemoglobin 15.5 g/dL (13.5-17.5); Lymphocytes % (auto) 19.9 % (10.0-50.0); Mean Corpuscular Hemoglobin 31.2 pg (28.0-32.0); Mean Corpuscular Hgb Conc. 34.5 g/dL (32.0-36.0); Mean Corpuscular Volume 90.5 fL (80.0-100.0); Monocytes % (auto) 9.2 % (0.0-12.0); Neutrophils # (auto) 4.8 10 ^3/uL (1.6-8.6); Neutrophils % (auto) 68.4 % (37.0-80.0); Red Cell Distribution Width 12.8 % (11.8-14.3)
[2021-07-12] MEDS: PIPERACILLIN-TAZOB 2.25GM 50 ML IV SCH ×3 (02:00→12:00)
[2021-07-12] MEDS: HEPARIN DRIP/D5W 100UNITS/ML 250 ML IV SCH (02:00)
[2021-07-12] MEDS: InsuLIN REG 1unit/0.01ml Soln (100units/ml) SC SCH ×4 (02:31→18:00)
[2021-07-12] MEDS: SODIUM CHLORIDE 0.9% 1,000 ML IV SCH ×4 (03:00→23:57)
[2021-07-12] MEDS ORDERED: VANCOMYCIN 1GM/250ML 250 ML IV ONE (04:19)
[2021-07-12] MEDS: ACCU-CHEK COMFORT CURVE STRIP VI SCH ×4 (06:00→18:00)
[2021-07-12 07:55] LABS: Basophils # (auto) 0 10 ^3/uL (0-0.2); Basophils % (auto) 0.3 % (0.0-2.0); Eosinophils # (auto) 0.1 10 ^3/uL (0-0.8); Eosinophils % (auto) 2.4 % (0.0-7.0); Hematocrit 43.3 % (41.0-53.0); Hemoglobin 14.7 g/dL (13.5-17.5); Lymphocytes # (auto) 1.2 10 ^3/uL (0.4-5.4); Lymphocytes % (auto) 21.1 % (10.0-50.0); Mean Corpuscular Hemoglobin 30.6 pg (28.0-32.0); Mean Corpuscular Volume 90.1 fL (80.0-100.0); Monocytes # (auto) 0.5 10 ^3/uL (0-1.3); Neutrophils # (auto) 3.8 10 ^3/uL (1.6-8.6); Neutrophils % (auto) 67.2 % (37.0-80.0); Nucleated Red Blood Cells % 0.1 %; White Blood Cell 5.7 10^3/uL (4.4-10.8)
[2021-07-12 08:08] LABS: Albumin 2.8 g/dL (3.4-5.0); Calcium 7.7 mg/dL (8.5-10.1)
[2021-07-12 08:13] LABS: BUN/Creatinine Ratio 10.9; Bilirubin, Total 0.4 mg/dL (0.2-1.0); Total Protein 5.7 g/dL (6.4-8.2)
[2021-07-12 08:36] LABS: Potassium 2.7 mmol/L (3.5-5.1)
[2021-07-12] MEDS ORDERED: POTASSIUM CHL 20 Meq TABLET PO ONE (09:15)
[2021-07-12] MEDS: POTASSIUM CHL 10MEQ/50ML 50 ML IV SCH ×4 (09:30→12:50)
[2021-07-12 09:46] LABS: INR 1.22 (0.9-1.15); Partial Thromboplastin Time 39.6 sec (23.6-33.0)
[2021-07-12] MEDS ORDERED: METF-370 PO (14:46)
[2021-07-12] MEDS ORDERED: FURO40TA4 PO (14:50)
[2021-07-12] MEDS ORDERED: GLIP10TA9 PO (14:50)
[2021-07-12] MEDS ORDERED: RIVSET PO (14:50)
[2021-07-12] MEDS ORDERED: SACU1TAB PO (14:50)
[2021-07-12] MEDS ORDERED: METO25TA5 PO (14:50)
[2021-07-12 16:03] LABS: Albumin 2.8 g/dL (3.4-5.0); Calcium 7.8 mg/dL (8.5-10.1); Potassium 4.3 mmol/L (3.5-5.1)
[2021-07-12 16:06] LABS: Bilirubin, Total 0.5 mg/dL (0.2-1.0); Total Protein 5.9 g/dL (6.4-8.2)
[2021-07-12] MEDS: VANCOMYCIN 1GM/250ML 250 ML IV SCH (18:18)
[2021-07-12 18:54] LABS: INR 1.16 (0.9-1.15); Partial Thromboplastin Time 38.8 sec (23.6-33.0)
[2021-07-12] MEDS: PIPERACILLIN-TAZOB 3.375GM 100 ML IV SCH (20:15)
[2021-07-12] MEDS ORDERED: METOPROLOL TARTRATE 25 MG TAB PO SCH (22:00)
[2021-07-13] MEDS: InsuLIN REG 1unit/0.01ml Soln (100units/ml) SC SCH ×3 (00:18→12:18)
[2021-07-13] MEDS: ACCU-CHEK COMFORT CURVE STRIP VI SCH ×3 (00:22→12:18)
[2021-07-13] MEDS ORDERED: METOPROLOL TARTRATE 25 MG TAB PO ONE (00:30)
[2021-07-13] MEDS: dilTIAZem 125mg/125ml BAG KIT 100 ML IV SCH ×2 (00:55→06:00)
[2021-07-13] MEDS: HEPARIN DRIP/D5W 100UNITS/ML 250 ML IV SCH (01:00)
[2021-07-13] MEDS: PIPERACILLIN-TAZOB 3.375GM 100 ML IV SCH ×3 (02:07→13:00)
[2021-07-13] MEDS: VANCOMYCIN 1GM/250ML 250 ML IV SCH ×2 (04:56→15:40)
[2021-07-13 07:33] LABS: Potassium 3.3 mmol/L (3.5-5.1)
[2021-07-13 07:34] LABS: Basophils # (auto) 0 10 ^3/uL (0-0.2); Basophils % (auto) 0.4 % (0.0-2.0); Eosinophils # (auto) 0.2 10 ^3/uL (0-0.8); Eosinophils % (auto) 2.7 % (0.0-7.0); Hematocrit 44.4 % (41.0-53.0); Hemoglobin 14.6 g/dL (13.5-17.5); Lymphocytes # (auto) 1.3 10 ^3/uL (0.4-5.4); Lymphocytes % (auto) 23.5 % (10.0-50.0); Mean Corpuscular Volume 90.9 fL (80.0-100.0); Monocytes # (auto) 0.5 10 ^3/uL (0-1.3); Monocytes % (auto) 9.4 % (0.0-12.0); Neutrophils # (auto) 3.7 10 ^3/uL (1.6-8.6); Nucleated Red Blood Cells % 0.1 %; Red Blood Cells 4.88 10^6/uL (4.5-5.90); White Blood Cell 5.7 10^3/uL (4.4-10.8)
[2021-07-13 07:35] LABS: BUN/Creatinine Ratio 8.9
[2021-07-13] MEDS: SODIUM CHLORIDE 0.9% 1,000 ML IV SCH ×2 (07:45→15:40)
[2021-07-13] MEDS ORDERED: METOPROLOL TARTRATE 25 MG TAB PO SCH (10:00)
[2021-07-13] MEDS ORDERED: ONDANSETRON HCL 4 MG/2 ML VIAL IV ONE (10:45)
[2021-07-13] MEDS ORDERED: HYDROmorphone HCL 2 MG/ML VL IV ONE (10:45)
[2021-07-13] MEDS ORDERED: LIDOCAINE W/ EPINEPHRINE 1% 20ML VIAL ID ONE (11:00)
[2021-07-13] MEDS ORDERED: LIDOCAINE 1% HCL (LOCAL ANESTH.) INJ 20ML MDV ONE (11:03)
[2021-07-13] MEDS ORDERED: HYDROmorphone HCL 2 MG/ML VL IV PRN (12:00)
[2021-07-13 14:41] VITALS: BP 127/80
[2021-07-13] MEDS ORDERED: POTASSIUM CHL 20 Meq TABLET PO ONE (15:00)
[2021-07-13] MEDS ORDERED: AMOX-277 PO (15:17)
[2021-07-13] MEDS ORDERED: METO-158 PO (15:17)
[2021-07-13] MEDS ORDERED: HYDR1TAB97 PO (15:17)
[2021-07-13] MEDS ORDERED: RIVSET PO (15:17)
[2021-07-13] MEDS ORDERED: ACET-1079 PO (15:17)
== END 2021-07-13 14:00 | disposition home or self-care (01) | DRG 364 ==
LOC: ER 17:43 → TELE 23:43
PROVIDERS: ADMIT Hospitalist; ATTEND Hospitalist
PROC: 0J990ZZ Drainage of Buttock Subcutaneous Tissue and Fascia, Open Approach (ICD-10-PCS; principal; 2021-07-13)
DX: L02.31 Cutaneous abscess of buttock (principal); N17.9 Acute kidney failure, unspecified; E11.8 Type 2 diabetes mellitus with unspecified complications; I42.9 Cardiomyopathy, unspecified; E87.1 Hypo-osmolality and hyponatremia; E11.65 Type 2 diabetes mellitus with hyperglycemia; E66.01 Morbid (severe) obesity due to excess calories; I48.91 Unspecified atrial fibrillation; I10 Essential (primary) hypertension; R19.5 Other fecal abnormalities; E87.6 Hypokalemia; I25.10 Atherosclerotic heart disease of native coronary artery without angina pectoris; Z20.822 Contact with and (suspected) exposure to COVID-19; E78.5 Hyperlipidemia, unspecified; I48.0 Paroxysmal atrial fibrillation; Z59.00 Homelessness unspecified; Z86.73 Personal history of transient ischemic attack (TIA), and cerebral infarction without residual deficits; Z68.33 Body mass index [BMI] 33.0-33.9, adult; Z82.49 Family history of ischemic heart disease and other diseases of the circulatory system; Z79.84 Long term (current) use of oral hypoglycemic drugs
CPT/HCPCS: 36415; 71045; 74177; 80048; 80053; 80202; 82962; 83036; 83605; 84484; 85025; 85610; 85730; 87040; 87077; 87186; 87205; 87426; 96365; 96374; 96375; G0378; J1815; J2001; J2405; J2543; J3490; J7060

== ENCOUNTER 2021-07-14 13:39 | Inpatient (IN) | payer MEDICAID ==
[~2021-07-14] VITALS: Ht 180.3 cm; Wt 105.6 kg
[~2021-07-14 13:39] MED LIST changes: +ACET-1079 PO; +AMOX-277 PO; +FURO40TA4 PO; +GLIP10TA9 PO; +HYDR1TAB97 PO; +METO25TA5 PO; +RIVSET PO; +SACU1TAB PO
[2021-07-14] MEDS ORDERED: SODIUM CHLORIDE 0.9% 1,000 ML IV ONE ×2 (14:00→16:00)
[2021-07-14 15:07] LABS: Urine Bacteria NONE SEEN /hpf (None Seen); Urine Blood Negative /uL (Negative); Urine Hyaline Cast FEW /lpf (0 - 2); Urine Specific Gravity 1.009 (1.001-1.035); Urine WBC 1 /hpf (0 - 3)
[2021-07-14 15:11] LABS: Basophils # (auto) 0 10 ^3/uL (0-0.2); Basophils % (auto) 0.6 % (0.0-2.0); Eosinophils # (auto) 0.1 10 ^3/uL (0-0.8); Eosinophils % (auto) 1.3 % (0.0-7.0); Hematocrit 44.9 % (41.0-53.0); Hemoglobin 15.4 g/dL (13.5-17.5); Lymphocytes # (auto) 1.1 10 ^3/uL (0.4-5.4); Lymphocytes % (auto) 17.7 % (10.0-50.0); Mean Corpuscular Hemoglobin 31.7 pg (28.0-32.0); Mean Corpuscular Hgb Conc. 34.3 g/dL (32.0-36.0); Mean Corpuscular Volume 92.3 fL (80.0-100.0); Monocytes # (auto) 0.4 10 ^3/uL (0-1.3); Monocytes % (auto) 7.4 % (0.0-12.0); Neutrophils # (auto) 4.4 10 ^3/uL (1.6-8.6); Red Blood Cells 4.87 10^6/uL (4.5-5.90); White Blood Cell 6.1 10^3/uL (4.4-10.8)
[2021-07-14 15:26] LABS: Albumin 3.5 g/dL (3.4-5.0); Magnesium 2.2 mg/dL (1.6-2.6); Potassium 3.7 mmol/L (3.5-5.1)
[2021-07-14 15:34] LABS: BUN/Creatinine Ratio 7.5; Bilirubin, Total 0.5 mg/dL (0.2-1.0); Total Protein 6.8 g/dL (6.4-8.2)
[2021-07-14] MEDS ORDERED: InsuLIN REG 1unit/0.01ml Soln (100units/ml) IV ONE (17:30)
[2021-07-14] MEDS ORDERED: CLINDAMYCIN 900MG IV 50 ML IV ONE (18:00)
[2021-07-14] MEDS ORDERED: dilTIAZem 125mg/125ml BAG KIT 125 ML IV ONE (20:30)
[2021-07-14] MEDS ORDERED: dilTIAZem 25 MG/5 ML VIAL IV ONE (20:30)
[2021-07-14] MEDS ORDERED: NITROGLYCERIN 0.4 MG SL TAB SL PRN (23:00)
[2021-07-14] MEDS ORDERED: ONDANSETRON HCL 4 MG/2 ML VIAL IV PRN (23:00)
[2021-07-14] MEDS ORDERED: DEXTROSE (50%) 50ML SYRG IV PRN (23:00)
[2021-07-14] MEDS ORDERED: MORPHINE SULFATE INJECTION 2 MG/ML SYRG IV PRN (23:00)
[2021-07-15] MEDS ORDERED: dilTIAZem HCL 50 MG/10 ML VIAL IV ONE (02:26)
[2021-07-15] MEDS: CLINDAMYCIN 900MG IV 50 ML IV SCH ×3 (06:29→21:24)
[2021-07-15] MEDS: InsuLIN REG 1unit/0.01ml Soln (100units/ml) SC SCH ×4 (07:06→21:26)
[2021-07-15] MEDS: ACCU-CHEK COMFORT CURVE STRIP VI SCH ×4 (07:08→21:28)
[2021-07-15] MEDS ORDERED: ASPirin-EC 325mg tab PO ONE (08:48)
[2021-07-15] MEDS ORDERED: ASPirin 81 mg TAB ONE (08:52)
[2021-07-15] MEDS: ASPirin-EC 81 mg tab PO SCH ×2 (09:27→09:29)
[2021-07-15] MEDS: FUROSEMIDE 40 MG TAB PO SCH (09:28)
[2021-07-15 09:50] LABS: Basophils # (auto) 0 10 ^3/uL (0-0.2); Basophils % (auto) 0.3 % (0.0-2.0); Eosinophils # (auto) 0.1 10 ^3/uL (0-0.8); Eosinophils % (auto) 1.6 % (0.0-7.0); Hematocrit 44.4 % (41.0-53.0); Hemoglobin 15.1 g/dL (13.5-17.5); Lymphocytes % (auto) 16.2 % (10.0-50.0); Mean Corpuscular Hemoglobin 30.9 pg (28.0-32.0); Mean Corpuscular Hgb Conc. 33.9 g/dL (32.0-36.0); Monocytes # (auto) 0.5 10 ^3/uL (0-1.3); Monocytes % (auto) 8.5 % (0.0-12.0); Neutrophils # (auto) 4.7 10 ^3/uL (1.6-8.6); Neutrophils % (auto) 73.4 % (37.0-80.0); Red Blood Cells 4.88 10^6/uL (4.5-5.90); Red Cell Distribution Width 13.2 % (11.8-14.3); White Blood Cell 6.4 10^3/uL (4.4-10.8)
[2021-07-15] MEDS ORDERED: ENOXAPARIN SOD 40 MG/0.4 ML SYRINGE SC SCH (10:00)
[2021-07-15] MEDS ORDERED: METOPROLOL TARTRATE 50 MG TAB PO SCH (10:00)
[2021-07-15] MEDS ORDERED: ASPirin-EC 81 mg tab PO SCH (10:00)
[2021-07-15 10:48] LABS: Potassium 3.8 mmol/L (3.5-5.1)
[2021-07-15 10:53] LABS: BUN/Creatinine Ratio 8.7; Calcium 8.7 mg/dL (8.5-10.1)
[2021-07-15] MEDS: METOPROLOL TARTRATE 50 MG TAB PO SCH ×2 (15:55→21:26)
[2021-07-15] MEDS: AMIODARONE HCL 200 MG TAB PO SCH ×2 (15:55→21:25)
[2021-07-15] MEDS: RIVAROXABAN 20 MG TAB PO SCH (18:17)
[2021-07-15] MEDS: AMOXICILLIN/CLAVUL 875 MG TAB PO SCH (21:24)
[2021-07-15] MEDS: ATORVASTATIN 20 MG TAB PO SCH (21:25)
[2021-07-15] MEDS ORDERED: ENOXAPARIN SOD 120 MG/0.8 ML SYRINGE SC SCH (22:00)
[2021-07-16] MEDS ORDERED: METO-158 PO ×2 (01:07→17:34)
[2021-07-16] MEDS ORDERED: METF-371 PO (01:07)
[2021-07-16] MEDS: CLINDAMYCIN 900MG IV 50 ML IV SCH ×3 (06:25→22:32)
[2021-07-16] MEDS: ACCU-CHEK COMFORT CURVE STRIP VI SCH ×4 (06:25→22:00)
[2021-07-16] MEDS: InsuLIN REG 1unit/0.01ml Soln (100units/ml) SC SCH ×4 (06:27→22:43)
[2021-07-16 06:36] VITALS: BP 124/45
[2021-07-16 08:00] VITALS: BP 135/86
[2021-07-16] MEDS: ASPirin-EC 81 mg tab PO SCH (10:48)
[2021-07-16] MEDS: FUROSEMIDE 40 MG TAB PO SCH (10:51)
[2021-07-16] MEDS: METOPROLOL TARTRATE 50 MG TAB PO SCH ×2 (10:52→22:33)
[2021-07-16] MEDS: AMIODARONE HCL 200 MG TAB PO SCH ×2 (10:53→22:32)
[2021-07-16] MEDS: AMOXICILLIN/CLAVUL 875 MG TAB PO SCH ×2 (11:55→22:42)
[2021-07-16 13:00] VITALS: BP 129/77
[2021-07-16 17:00] VITALS: BP 130/88
[2021-07-16] MEDS: RIVAROXABAN 20 MG TAB PO SCH (17:18)
[2021-07-16] MEDS ORDERED: SACU1TAB PO (17:34)
[2021-07-16] MEDS ORDERED: RIVSET PO (17:34)
[2021-07-16] MEDS ORDERED: INSU100I44 SC (17:38)
[2021-07-16] MEDS ORDERED: INSU1INJ19 SC (17:38)
[2021-07-16] MEDS ORDERED: BLOO-200 XX (17:38)
[2021-07-16] MEDS: INSULIN LANTUS (GLARGINE) 1 /0.01ml (100units/ml) SC SCH (19:26)
[2021-07-16 20:20] VITALS: BP 143/76
[2021-07-16 22:00] VITALS: BP 149/80
[2021-07-16] MEDS: ATORVASTATIN 20 MG TAB PO SCH (22:33)
[2021-07-17] VITALS (8 sets, daily range): BP systolic 103–135; BP diastolic 72–83
[2021-07-17] MEDS: ACCU-CHEK COMFORT CURVE STRIP VI SCH ×4 (06:50→21:46)
[2021-07-17] MEDS: InsuLIN REG 1unit/0.01ml Soln (100units/ml) SC SCH ×4 (06:50→22:00)
[2021-07-17] MEDS: CLINDAMYCIN 900MG IV 50 ML IV SCH ×3 (06:50→22:00)
[2021-07-17] MEDS: AMIODARONE HCL 200 MG TAB PO SCH ×2 (09:10→22:00)
[2021-07-17] MEDS: ASPirin-EC 81 mg tab PO SCH (09:11)
[2021-07-17] MEDS: FUROSEMIDE 40 MG TAB PO SCH (09:11)
[2021-07-17] MEDS: INSULIN LANTUS (GLARGINE) 1 /0.01ml (100units/ml) SC SCH (09:11)
[2021-07-17] MEDS: AMOXICILLIN/CLAVUL 875 MG TAB PO SCH ×2 (09:11→22:00)
[2021-07-17] MEDS: METOPROLOL TARTRATE 50 MG TAB PO SCH ×3 (09:11→17:11)
[2021-07-17] MEDS ORDERED: HYDROcodone-ACET 5/325MG TAB PO PRN (13:45)
[2021-07-17] MEDS ORDERED: MET50T PO (17:29)
[2021-07-17 18:26] LABS: Cholesterol 150 mg/dL (< 200)
[2021-07-17 18:29] LABS: HDL Cholesterol 33 mg/dL (40-59); Triglycerides 102 mg/dL (< 150)
[2021-07-17] MEDS: RIVAROXABAN 20 MG TAB PO SCH (18:32)
[2021-07-17] MEDS: ATORVASTATIN 20 MG TAB PO SCH (22:00)
[2021-07-26 05:35] LABS: LDL Cholesterol 99 mg/dL (< 100)
== END 2021-07-18 00:18 | disposition home health service (06) | DRG 45 ==
LOC: EDBD 13:39 → ER 13:39 → TELE 22:50 → TELE-WESTW 07-15 21:48
PROVIDERS: ADMIT Hospitalist; ATTEND Hospitalist
DX: I63.9 Cerebral infarction, unspecified (principal); I42.9 Cardiomyopathy, unspecified; E11.40 Type 2 diabetes mellitus with diabetic neuropathy, unspecified; R47.01 Aphasia; E11.65 Type 2 diabetes mellitus with hyperglycemia; L02.31 Cutaneous abscess of buttock; E78.5 Hyperlipidemia, unspecified; I48.91 Unspecified atrial fibrillation; I50.22 Chronic systolic (congestive) heart failure; G47.30 Sleep apnea, unspecified; I11.0 Hypertensive heart disease with heart failure; R20.0 Anesthesia of skin; F41.9 Anxiety disorder, unspecified; F32.9 Major depressive disorder, single episode, unspecified; Z20.822 Contact with and (suspected) exposure to COVID-19; Z59.00 Homelessness unspecified; Z79.01 Long term (current) use of anticoagulants; Z79.4 Long term (current) use of insulin; Z79.899 Other long term (current) drug therapy; Z82.49 Family history of ischemic heart disease and other diseases of the circulatory system; Z83.3 Family history of diabetes mellitus; Z91.19 Patient's noncompliance with other medical treatment and regimen
CPT/HCPCS: 36415; 70450; 70551; 71046; 80048; 80053; 80061; 81001; 82962; 83735; 83880; 84443; 85025; 87040; 87426; 93005; 93886; 96361; 96365; 96375; 99291; G0378; J1815; J2405; J3490

== ENCOUNTER 2024-05-27 20:18 | Inpatient (IN) | payer MEDICAID ==
[~2024-05-27] VITALS: Ht 180.3 cm; Wt 76.6 kg
[~2024-05-27 20:18] MED LIST changes: -ACET-1079 PO; -AMOX-277 PO; +AMOX875T4 PO; +APIX5TAB PO; +BLOO-200 XX; -CLON0.1T PO; +EMPA1TAB PO; -GLIP10TA9 PO; -HYDR25TA87 PO; +INSU100I54 SC; +INSU1INJ19 SC; +LOSA-535 PO; +MET50T PO; -METF-370 PO; -METO-158 PO; -METO25TA5 PO
--- NOTE | 2024-05-27 20:43 | ED.PDOC ---
HPI Comments 58-year-old male who came to the ER for palpitations. Does have history of hypertension, diabetes, congestive heart failure, methamphetamine abuse, status post pacemaker insertion. States for the past few hours, he has been experiencing palpitations, felt like his pacemaker was acting up, associated with left-sided chest pains, sharp, shortness of breath, abdominal pain, nausea, vomiting, and blurring of vision. Chief Complaint: Palpitations Time Seen by MD: 20:43 Primary Care Provider: Tony AMAYA Reviewed Notes: Nurses Notes Allergies: Coded Allergies: NO KNOWN ALLERGIES (Unverified , 10/15/20) Home Meds Active Scripts Insulin Lispro (Insulin Lispro) 100 Unit/Ml Inj, 10 UNIT IJ ACHS for 90 Days, #100 INJ Prov:BRITTA NICHOLSON MD 05/27/24 Insulin Glargine-Yfgn (Insulin Glargine) 100 Unit/Ml Inj, 20 UNIT SC DAILY for 90 Days, #100 INJ Prov:BRITTA NICHOLSON MD 05/27/24 Metoprolol Tartrate (LOPRESSOR TABLET) 50 Mg Tb, 100 MG PO BID, #120 TAB Prov:ERIKA BROWN MD 07/17/21 Blood Glucose Monitoring Suppl (Blood Glucose Monitoring W/Device) 1 Kit Kit, KIT XX ACHS, #125 Given glucometer with 30-day supply test strips, alcohol prep pads, lancets. Diagnosis diabetes mellitus type 2. Prov:ERIKA BROWN MD 07/16/21 Insulin Lispro (Insulin Lispro Kwikpen) 100 Unit/Ml Inj, 1 DOSE SC UD, #5 SYR Administer up to 40 units daily divided 3 times daily before meals and at bedtime per provided sliding scale. Prov:ERIKA BROWN MD 07/16/21 Insulin Glargine (Basaglar Kwikpen) 100 Unit/Ml Inj, 15 UNIT SC DAILY, #30 DOSE Prov:ERIKA BROWN MD 07/16/21 Rivaroxaban (Xarelto) 10 Mg Tab, 20 MG PO DAILY@DINNER, #30 TAB Prov:ERIKA BROWN MD 07/16/21 Sacubitril-Valsartan (Entresto 24-26 mg) 1 Tab Tab, 1 TAB PO DAILY, #30 TAB Measure blood pressure prior to every dose. Hold dose if the top number or your systolic blood pressure is below 130 mmHg Prov:ERIKA BROWN MD 07/16/21 Hydrocodone-Acetaminophen (Hydrocodone/Acetaminophen 5-325 mg) 1 Tab Tab, 1 TAB PO Q6HP PRN MDD pain 5-10, #20 TAB Prov:BISHOP BROWN MD 07/13/21 Amoxicillin & Pot Clavulanate (Amoxicillin/Potassium Cla) 875 Mg Tab, 875 MG PO BID, #20 TAB Prov:BISHOP BROWN MD 07/13/21 Amiodarone Hcl (Amiodarone Hcl) 200 Mg Tab, 200 MG PO BID, #60 TAB Prov:MARCO AREVALO MD 06/04/21 Reported Medications Furosemide (Furosemide) 40 Mg Tab, 40 MG PO DAILY for 30 Days 07/12/21 Bupropion Hcl (Bupropion Hcl Sr) 150 Mg Tab, 1 TAB PO BID 05/01/21 Atorvastatin Calcium (ATORVASTATIN CALCIUM) 40 Mg Tab, 1 TAB PO DAILY 05/01/21 Fluticasone Propionate (FLOVENT HFA 110Mcg INH) 110 Mcg Ih, 2 PUFF INH BID 05/01/21 Information Source: Patient Mode of Arrival: Ambulatory Severity: Moderate Timing: Hours Duration: Since onset Prehospital treatment: None Location: Chest (L) Radiation: No Radiation Quality: Sharp Onset: With Light Exertion Cardiac Risk Factors: HTN, Diabetes History of: Similar pain in past Associated Signs and Symptoms: SOB, Palpitations, Abdominal Pain, N/V Past Medical History PAST MEDICAL HISTORY: AFIB, CHF, CVA, DM, High Lipids, HTN, TIA Surgical History: Appendectomy, Pacemaker Family History Family History: Reviewed,noncontributory to illness Social History Smoker: Non-Smoker, Quit Less Than 1 Year Alcohol: Denies ETOH Use Drugs: Methamphetamine Lives In: Homeless Constitutional: reports: fatigue, weakness; denies: chills, diaphoresis, fever, malaise, sweats, others EENTM: reports: blurred vision; denies: double vision, ear bleeding, ear discharge, ear drainage, ear pain, ear ringing, eye pain, eye redness, hearing loss, mouth pain, mouth swelling, nasal discharge, nose bleeding, nose congestion, nose pain, photophobia, tearing, throat pain, throat swelling, voice changes, others Respiratory: reports: cough, SOB at rest, shortness of breath, SOB with excertion; denies: hemoptysis, orthopnea, stridor, wheezing, others Cardiovascular: reports: chest pain, dizzy spells; denies: diaphoresis, Dyspnea on exertion, edema, irregular heart beat, left arm pain, lightheadedness, pa lpitations, PND, syncope, others Gastrointestinal: reports: abdominal pain, nausea, vomiting; denies: abdomen distended, blood streaked bowels, constipated, diarrhea, dysphagia, difficulty swallowing, hematemesis, melena, poor appetite, poor fluid intake, rectal bleeding, rectal pain, others Genitourinary: denies: burning, dysuria, flank pain, frequency, hematuria, incontinence, penile discharge, penile sore, pain, testicle pain, testicle swelling, urgency, others Neurological: denies: dizziness, fainting, headache, left sided numbness, left sided weakness, numbness, paresthesia, pre-existing deficit, right sided numbness, right sided weakness, seizure, speech problems, tingling, tremors, weakness, others Musculoskeletal: denies: back pain, gout, joint pain, joint swelling, muscle pain, muscle stiffness, neck pain, others Integumetry: denies: bruises, change in color, change in hair/nails, dryness, laceration, lesions, lumps, rash, wounds, others Allergic/Immunocompromised: denies: Difficulty Healing, Frequent Infections, Hives, Itching, others Hematologic/Lymphatic: denies: anemia, blood clots, easy bleeding, easy bruising, swollen glands, others Endocrine: denies: excessive hunger, excessive sweating, excessive thirst, excessive urination, flushing, intolerance to cold, intolerance to heat, unexplained weight gain, unexplained weight loss, others Psychiatric: denies: anxiety, bipolar disorder, depression, hopeless, panic disorder, schizophrenia, sleepless, suicidal, others Physical Exam General Appearance: No Apparent Distress, Normal HEENT: Normal ENT Inspection, Pharynx Normal, TMs Normal Neck: Full Range of Motion, Non-Tender, Normal, Normal Inspection Respiratory: Chest Non-Tender, Lungs Clear, No Accessory Muscle Use, No Respiratory Distress, Normal Breath Sounds Cardiovascular: No Edema, No JVD, No Murmur, No Gallop, Normal Peripheral Pulses, Regular Rate/Rhythm Breast Exam: Deferred Gastrointestinal: No Organomegaly, Non Tender, No Pulsatile Mass, Normal Bowel Sounds, Soft Genitalia: Deferred Pelvic: Deferred Rectal: Deferred Extremities: No calf tenderness, Normal capillary refill, Normal inspection, Normal range of motion, Non-tender, No pedal edema Musculoskeletal : Apperance: Normal Neurologic: Alert, window cleaner II-XII nml as Tested, No Motor Deficits, Normal Affect, Normal Mood, No Sensory Deficits Cerebellar Function: Normal Reflexes: Normal Skin: Dry, Normal Color, Warm Lymphatic: No Adenopathy Was a procedure done? Was a procedure done?: No CP Differential Dx Differential Diagnosis: Angina, Anxiety / Panic Attack, Electrolyte Disorder, Heart Failure, Hyperthyroidism Differential Diagnosis: CHF Differential Diagnosis: Angina, Chest Wall Pain, Costochondritis, Esophageal reflux/spasm, Gastritis, Myocardial Infarction, Pneumonia X-Ray, Labs, Meds, VS Vital Signs Date Time Temp Pulse Resp B/P (MAP) Pulse Ox O2 Delivery O2 Flow Rate FiO2 05/27/24 20:23 97.4 68 22 138/113 (121) 94 05/27/24 20:18 139 Lab Test 05/27/24 21:25 05/27/24 20:30 Range/Units Troponin I High Sensitivity 39 45 </=54 ng/L White Blood Count 7.2 4.4-10.8 10^3/uL Red Blood Count 5.33 4.5-5.90 10^6/uL Hemoglobin 17.6 H 13.5-17.5 g/dL Hematocrit 51.0 41.0-53.0 % Mean Corpuscular Volume 95.8 80.0-100.0 fL Mean Corpuscular Hemoglobin 32.9 H 28.0-32.0 pg Mean Corpuscular Hemoglobin Concent 34.4 32.0-36.0 g/dL Red Cell Distribution Width 13.2 11.8-14.3 % Platelet Count 272 140-450 10^3/uL Mean Platelet Volume 8.4 6.9-10.8 fL Neutrophils (%) (Auto) 72.9 37.0-80.0 % Lymphocytes (%) (Auto) 17.9 10.0-50.0 % Monocytes (%) (Auto) 7.4 0.0-12.0 % Eosinophils (%) (Auto) 0.9 0.0-7.0 % Basophils (%) (Auto) 0.9 0.0-2.0 % Neutrophils # (Auto) 5.2 1.6-8.6 10 ^3/uL Lymphocytes # (Auto) 1.3 0.4-5.4 10 ^3/uL Monocytes # (Auto) 0.5 0-1.3 10 ^3/uL Eosinophils # (Auto) 0.1 0-0.8 10 ^3/uL Basophils # (Auto) 0.1 0-0.2 10 ^3/uL Nucleated Red Blood Cells 0.2 % Prothrombin Time 11.2 9.3-11.8 sec Prothrombin Time INR 1.06 0.9-1.15 Activated Partial Thromboplast Time 25.4 24.5-34.5 SEC Sodium Level 122 L 136-145 mmol/L Potassium Level 4.1 3.5-5.1 mmol/L Chloride Level 86 L 98-107 mmol/L Carbon Dioxide Level 25 20-31 mmol/L Anion Gap 11 5-15 Blood Urea Nitrogen 21 9-23 mg/dL Creatinine 2.16 H 0.700-1.30 mg/dL Glomerular Filtration Rate Calc 35 >90 mL/min BUN/Creatinine Ratio 9.7 L 10.0-20.0 Serum Glucose 816 *H 74-106 mg/dL Calcium Level 10.7 H 8.7-10.4 mg/dL Total Bilirubin 0.9 0.2-1.0 mg/dL Aspartate Amino Transferase (AST) 32 13-40 U/L Alanine Aminotransferase (ALT) 44 H 7-40 U/L Alkaline Phosphatase 151 H 46-116 U/L Total Protein 7.8 5.7-8.2 g/dL Albumin 4.7 3.2-4.8 g/dL Time of 1ST Reevaluation: 20:37 Reevaluation 1ST: Unchanged Time of 2ND Reevaluation: 00:07 Reevaluation 2ND: Improved Patient Education/Counseling: Diagnosis, Treatment Family Education/Counseling: No Family Present Departure 1 Departure Time of Disposition: 00:08 Impression: Primary Impression: Palpitations Additional Impression: Hyperglycemia Disposition: 01 HOME / SELF CARE / HOMELESS Condition: Stable e-Prescriptions Insulin Lispro (Insulin Lispro) 100 Unit/Ml Inj 10 UNIT IJ ACHS for 90 Days, #100 INJ Prov: BRITTA NICHOLSON MD 05/27/24 Insulin Glargine-Yfgn (Insulin Glargine) 100 Unit/Ml Inj 20 UNIT SC DAILY for 90 Days, #100 INJ Prov: BRITTA NICHOLSON MD 05/27/24 Discharged With: Self Critical Care Note Critical Care Time?: Yes (35 min-critical care time only) Critical care comment: Acute chest pains Stability Stability form required: No Heart Score Heart Score: Heart Score Response (Comments) Value History Slightly Suspicious 0 EKG Normal 0 Age 45-64 1 Risk Factors 1 or 2 risk factors 1 Troponin Normal limit 0 Total 2 I personally scribed for BRITTA NICHOLSON MD ([email or web address]) on 05/27/24 at 20:43. Electronically submitted by Tito Diaz ([facility]). BRITTA NICHOLSON MD May 27, 2024 20:43
[2024-05-27 20:52] LABS: Basophils # (auto) 0.1 10 ^3/uL (0-0.2); Basophils % (auto) 0.9 % (0.0-2.0); Eosinophils # (auto) 0.1 10 ^3/uL (0-0.8); Eosinophils % (auto) 0.9 % (0.0-7.0); Hemoglobin 17.6 g/dL (13.5-17.5); Lymphocytes # (auto) 1.3 10 ^3/uL (0.4-5.4); Lymphocytes % (auto) 17.9 % (10.0-50.0); Mean Corpuscular Hemoglobin 32.9 pg (28.0-32.0); Mean Corpuscular Hgb Conc. 34.4 g/dL (32.0-36.0); Mean Corpuscular Volume 95.8 fL (80.0-100.0); Monocytes # (auto) 0.5 10 ^3/uL (0-1.3); Monocytes % (auto) 7.4 % (0.0-12.0); Neutrophils # (auto) 5.2 10 ^3/uL (1.6-8.6); Neutrophils % (auto) 72.9 % (37.0-80.0); Nucleated Red Blood Cells % 0.2 %; Platelet Count (auto) 272 10^3/uL (140-450); Red Blood Cells 5.33 10^6/uL (4.5-5.90); Red Cell Distribution Width 13.2 % (11.8-14.3); White Blood Cell 7.2 10^3/uL (4.4-10.8)
--- NOTE | 2024-05-27 20:58 | DVH ---
CHEST RADIOGRAPH Indication: chest pain Technique: Single frontal view of the chest was obtained COMPARISON: CHEST XRAY 1 VIEW on DOS: 07/12/21 FINDINGS: Lines and Tubes: Left-sided pacemaker/ AICD with a single cardiac lead Lungs: Right lower lobe scarring/atelectasis. No definitive evidence of pneumonia Pleura: No effusion. No pneumothorax. Cardiomediastinal contours: Unremarkable Bones: Unremarkable IMPRESSION: 1. No acute disease.
[2024-05-27 21:01] LABS: INR 1.06 (0.9-1.15); Partial Thromboplastin Time 25.4 SEC (24.5-34.5); Prothrombin Time 11.2 sec (9.3-11.8)
[2024-05-27 21:06] LABS: Albumin 4.7 g/dL (3.2-4.8); Anion Gap 11 (5-15); Aspartate Aminotransferase 32 U/L (13-40); BUN/Creatinine Ratio 9.7 (10.0-20.0); Blood Urea Nitrogen 21 mg/dL (9-23); Carbon Dioxide 25 mmol/L (20-31); Potassium 4.1 mmol/L (3.5-5.1)
[2024-05-27 21:07] LABS: Bilirubin, Total 0.9 mg/dL (0.2-1.0); Total Protein 7.8 g/dL (5.7-8.2)
[2024-05-27 21:36] LABS: Alanine Aminotransferase 44 U/L (7-40); Alkaline Phosphatase 151 U/L (46-116); Calcium 10.7 mg/dL (8.7-10.4); Chloride 86 mmol/L (98-107); Sodium 122 mmol/L (136-145)
[2024-05-27 21:41] LABS: Glucose 816 mg/dL (74-106)
[2024-05-27] MEDS ORDERED: INSU100I70 SC (22:34)
[2024-05-27] MEDS ORDERED: INSU100I52 IJ (22:34)
[2024-05-28] MEDS: SODIUM CHLORIDE 0.9% 1,000 ML IV ONE (00:56)
[2024-05-28] MEDS: InsuLIN REG 1unit/0.01ml Soln (100units/ml) IV ONE (01:04)
[2024-05-28 01:26] VITALS: PULSE 71; RESP 16; O2SAT 98
[2024-05-28] MEDS ORDERED: hydrALAZINE HCL 20 MG/ML VL IV PRN ×3 (05:15→14:15)
[2024-05-28] MEDS ORDERED: HYDROcodone-ACET 5/325MG TAB PO PRN ×3 (05:15→14:15)
[2024-05-28] MEDS ORDERED: DEXTROSE (50%) 50ML SYRG IV PRN ×3 (05:15→14:15)
[2024-05-28] MEDS ORDERED: ONDANSETRON HCL 4 MG/2 ML VIAL IV PRN ×2 (05:15→06:45)
[2024-05-28] MEDS ORDERED: DOCUSATE SOD 100 MG CAP PO PRN ×3 (05:15→14:15)
[2024-05-28] MEDS ORDERED: ACETAMINOPHEN 325 MG TAB PO PRN ×2 (05:15→06:45)
[2024-05-28] MEDS ORDERED: MORPHINE SULFATE INJ 2 MG/ml SYRG IV PRN ×2 (05:45→06:45)
[2024-05-28] MEDS ORDERED: NITROGLYCERIN 0.4 MG SL TAB SL PRN ×2 (05:45→06:45)
--- NOTE | 2024-05-28 05:51 | DVHHP2 ---
History of Present Illness Reason for Visit: Palpitations History of Present Illness The patient is a 58-year-old male with multiple past medical history including AFib, CHF, CVA, diabetes mellitus, and hypertension who presented to [facility] ED with complaint of palpitations. Patient reports symptoms progressively get worse with shortness of breath, chest pain, dizzy spells, weakness, fatigue, abdominal pain, nausea, vomiting, getting worse that prompted this visit. Patient was seen and evaluated in the ED, laboratory data shows WBC 7.2, platelets 272, sodium 122, potassium 4.1, BUN 21, creatinine 2.16, GFR 35, calcium 10.7, glucose 816, AST 32, ALT 44, anion gap 11, troponin 39, blood pressure 158/91, heart rate 72, temperature 97.7 F, O2 saturation 98% on oxygen. Chest x-ray show no acute disease. Patient was given 10 units regular insulin, please see medication orders section in the computer. On my assessment, patient denied chest pain, no headache, no dizziness, no diaphoresis, no diarrhea, no nausea, vomiting, no, no chills. Patient was admitted further evaluation and medical management. Past Medical History AFIB, CHF, CVA, DM, High Lipids, HTN, TIA Past Surgical History Appendectomy, Pacemaker Family History Reviewed, noncontributory to the management of this case. Past Social History Patient is homeless, quit smoking less than 1 year, denies alcohol use, uses methamphetamine. Review of Systems Constitutional: Yes: Weakness, Malaise, Other (Fatigue); No: Fever, Chills, Sweats Eyes: Other (Blurry vision); No: Pain, Vision change, Conjunctivae inflammation, Eyelid inflammation, Redness ENT: No: Ear pain, Ear discharge, Nose pain, Nose discharge, Nose congestion, Mouth pain, Mouth swelling, Throat pain, Throat swelling, Other Respiratory: Cough, Shortness of breath, SOB with excertion, Other (SOB at rest); No: Dry, Wheezing, Hemoptysis, Pleuritic Pain, Sputum, Wheezing Cardiovascular: Chest Pain, Other (Dizzy spells); No: Palpitations, Orthopnea, Paroxysmal Noc. Dyspnea, Edema, Lt Headedness Gastrointestinal: Nausea, Vomiting, Abdominal Pain; No: Diarrhea, Constipation, Melena, Hematochezia, Other Genitourinary: No Dysuria, No Frequency, No Incontinence, No Hematuria, No Retention, No Other Musculoskeletal: No: other, neck pain, shoulder pain, arm pain, back pain, hand pain, leg pain, foot pain Skin: No: Rash, Lesions, Jaundice, Bruising, Other Neurological: No: Weakness, Numbness, Incoordination, Change in speech, Confusion, Seizures, Other Allergies: Coded Allergies: NO KNOWN ALLERGIES (Unverified , 10/15/20) Medications Current Medications Medications Dose Ordered Sig/Charles Route Start Time Stop Time Status Last Admin Dose Admin Aspirin 81 mg DAILY PO 05/28/24 10:00 Atorvastatin Calcium 10 mg HS PO 05/28/24 22:00 Furosemide 40 mg DAILY IV 05/28/24 10:00 Diagnostic Test (Pha) 1 strip IQ4HR 05/28/24 08:00 Insulin Human Regular IQ4HR SC 05/28/24 08:00 Dextrose 50 ml UD PRN IV 05/28/24 05:15 Sodium Chloride 10 ml Q8HR IV 05/28/24 06:00 Acetaminophen/ Hydrocodone Bitart 1 tab Q4HP PRN PO 05/28/24 05:15 Ondansetron HCl 4 mg Q4HP PRN IV 05/28/24 05:15 Docusate Sodium 100 mg BIDPRN PRN PO 05/28/24 05:15 Acetaminophen 650 mg Q6HP PRN PO 05/28/24 05:15 Insulin Glargine 15 units BID@0700,2200 SC 05/28/24 07:00 Carvedilol 12.5 mg Q12HR PO 05/28/24 10:00 Hydralazine HCl 10 mg Q6HP PRN IV 05/28/24 05:15 Exam Vital Signs Vital Signs Date Time Temp Pulse Resp B/P (MAP) Pulse Ox O2 Delivery O2 Flow Rate FiO2 05/28/24 01:26 97.7 71 16 158/91 (113) 98 97.7 05/28/24 01:26 Room Air* 0 21 General Appearance: Alert, Oriented X3, Cooperative, No acute distress HEENT: Atraumatic, PERRLA, EOMI, Mucous membr. moist/pink Respiratory: Normal air movement, Other (Congestion) Cardiovascular: Regular rate, Normal S1, Normal S2, No murmurs Abdominal: Normal bowel sounds, Soft, No tenderness, No hepatospenomegaly, No masses Extremities: No clubbing, No cyanosis, No edema, Normal pulses, No tenderness/swelling Skin: No rashes, No breakdown, No significant lesion Neuro: Normal speech, Normal tone, Sensation intact, Cranial nerves 3-12 NL, Reflexes 2+, Other (Generalized weakness) Psych/Mental Status: Mental status NL, Mood NL Labs/Xrays Labs Test 05/27/24 21:25 05/27/24 20:30 Range/Units Troponin I High Sensitivity 39 </=54 ng/L White Blood Count 7.2 4.4-10.8 10^3/uL Red Blood Count 5.33 4.5-5.90 10^6/uL Hemoglobin 17.6 H 13.5-17.5 g/dL Hematocrit 51.0 41.0-53.0 % Mean Corpuscular Volume 95.8 80.0-100.0 fL Mean Corpuscular Hemoglobin 32.9 H 28.0-32.0 pg Mean Corpuscular Hemoglobin Concent 34.4 32.0-36.0 g/dL Red Cell Distribution Width 13.2 11.8-14.3 % Platelet Count 272 140-450 10^3/uL Mean Platelet Volume 8.4 6.9-10.8 fL Neutrophils (%) (Auto) 72.9 37.0-80.0 % Lymphocytes (%) (Auto) 17.9 10.0-50.0 % Monocytes (%) (Auto) 7.4 0.0-12.0 % Eosinophils (%) (Auto) 0.9 0.0-7.0 % Basophils (%) (Auto) 0.9 0.0-2.0 % Neutrophils # (Auto) 5.2 1.6-8.6 10 ^3/uL Lymphocytes # (Auto) 1.3 0.4-5.4 10 ^3/uL Monocytes # (Auto) 0.5 0-1.3 10 ^3/uL Eosinophils # (Auto) 0.1 0-0.8 10 ^3/uL Basophils # (Auto) 0.1 0-0.2 10 ^3/uL Nucleated Red Blood Cells 0.2 % Prothrombin Time 11.2 9.3-11.8 sec Prothrombin Time INR 1.06 0.9-1.15 Activated Partial Thromboplast Time 25.4 24.5-34.5 SEC Sodium Level 122 L 136-145 mmol/L Potassium Level 4.1 3.5-5.1 mmol/L Chloride Level 86 L 98-107 mmol/L Carbon Dioxide Level 25 20-31 mmol/L Anion Gap 11 5-15 Blood Urea Nitrogen 21 9-23 mg/dL Creatinine 2.16 H 0.700-1.30 mg/dL Glomerular Filtration Rate Calc 35 >90 mL/min BUN/Creatinine Ratio 9.7 L 10.0-20.0 Serum Glucose 816 *H 74-106 mg/dL Calcium Level 10.7 H 8.7-10.4 mg/dL Total Bilirubin 0.9 0.2-1.0 mg/dL Aspartate Amino Transferase (AST) 32 13-40 U/L Alanine Aminotransferase (ALT) 44 H 7-40 U/L Alkaline Phosphatase 151 H 46-116 U/L Total Protein 7.8 5.7-8.2 g/dL Albumin 4.7 3.2-4.8 g/dL PATIENT: BRAYAN MCARTHURCCT: [id number] UNIT: [id number] : 1965 LOC: ER ROOM / BED: / AGE / SEX: 58 / M ADM STATUS: REG ER SERVICE 32 ORDERING PHYSICIAN: BRITTA NICHOLSON MD PROCEDURE(s): CXR1 - CHEST XRAY 1 VIEW REASON: chest pain ORDER NUMBER(s): [id number], ACCESSION NUMBER(s): [id number] CHEST RADIOGRAPH Indication: chest pain Technique: Single frontal view of the chest was obtained COMPARISON: CHEST XRAY 1 VIEW on DOS: 07/12/21 FINDINGS: Lines and Tubes: Left-sided pacemaker/ AICD with a single cardiac lead Lungs: Right lower lobe scarring/atelectasis. No definitive evidence of pneumonia Pleura: No effusion. No pneumothorax. Cardiomediastinal contours: Unremarkable Bones: Unremarkable IMPRESSION: 1. No acute disease. Assessment/Plan Assessment/Plan Palpitations Hypertension Hyponatremia Acute renal failure Diabetes mellitus with hyperglycemia Plan 1. Admit to telemetry unit 2. Breathing treatment 3. Pain control management 4. Management of fluids and electrolytes 5. Consultation for Nephrology 6. Diagnostic tests chest x-ray 7. DVT prophylaxis-on aspirin 8. Repeat labs CBC, CMP in a.m. 9. Continue with current medical management 10. Treatment plan discussed with patient and RN. Patient verbalized unders tanding. Plan discussed with: Patient, Other (RN) My Orders Orders - AZEB LI DNP Procedure Category Date Status Time Consistent DIET 05/28/24 Transmitted Carb(Ccho)Diabetes Breakfast Aspirin Tablet PHA 05/28/24 In Process 10:00 Atorvastatin (Lipitor) PHA 05/28/24 In Process 22:00 Furosemide Injection PHA 05/28/24 In Process (Lasix Injection) 10:00 B-Type Natriuretic LAB 05/28/24 In Process Peptide 05:01 * Cardiology Consult CONS 05/28/24 Transmitted 05:01 Glucose Blood PHA 05/28/24 In Process (Accu-Chek Comfort 08:00 Insulin R (Human) PHA 05/28/24 In Process (Insulin R) 08:00 Dextrose 50% Syringe PHA 05/28/24 In Process 05:15 Allergies NAS 05/28/24 In Process 05:01 Code Status CODE 05/28/24 Transmitted 05:01 Sodium Chloride Lock PHA 05/28/24 In Process (Saline Lock Ns) 06:00 Oxygen Per Hour RT 05/28/24 Transmitted 05:01 Hydrocodone-Acet PHA 05/28/24 In Process 5/325mg Tab ([place] 05:15 Ondansetron Hcl PHA 05/28/24 In Process (Zofran) 05:15 Docusate Sodium PHA 05/28/24 In Process Capsule (Colace 05:15 Complete Blood Count LAB 05/29/24 Verified 04:00 Comprehensive LAB 05/29/24 Verified Metabolic Panel 04:00 Condition: Serious NAS 05/28/24 In Process 05:01 Acetaminophen Tablet PHA 05/28/24 In Process (Tylenol Tablet) 05:15 Bedrest With Bathroom NAS 05/28/24 In Process Privileg 05:01 Sequential NAS 05/28/24 In Process Compression Device *Dr. Alex Westbrook CONS 05/28/24 Transmitted -[place] 05:01 Insulin Lantus PHA 05/28/24 In Process (Glargine) (Lantus) 07:00 Carvedilol Tablet PHA 05/28/24 In Process (Coreg Tablet) 10:00 Hydralazine Injection PHA 05/28/24 In Process (Apresoline Inject 05:15 Admit ADMIT 05/28/24 Verified 05:33 Nitroglycerin PHA 05/28/24 Verified Sublingual (Ntrostat 05:45 Morphine Sulfate [facility] 05/28/24 Verified Injection 05:45 Notify Md Of Changes [facility] 05/28/24 Verified From Base 05:33 Tile Edger For [facility] 05/28/24 Verified 24 Hours 05:33 Emergency Dysrhythmia [facility] 05/28/24 Verified Protocol 05:33 Rhythm Strips Once [facility] 05/28/24 Verified Every Shift 05:33 Oxygen By Nasal 05/28/24 Verified Cannula 05:33 Problem List: (1) Palpitations (2) Hyponatremia (3) Hypertension (4) Acute renal failure (5) Diabetes mellitus with hyperglycemia Date of Service: May 28, 2024 Billing Provider: AEZB LI DNP Common Visit Codes: [id number] INP/OBS CARE (HIGH) AZEB LI DNP May 28, 2024 05:51
[2024-05-28] MEDS: SODIUM CHLOR 0.9% PF (SALINE LOCK) 10ML VIAL/SYR IV SCH ×2 (06:36→22:00)
[2024-05-28] MEDS: INSULIN LANTUS (GLARGINE) 1 /0.01ml (100units/ml) SC SCH (06:46)
[2024-05-28] MEDS ORDERED: INSULIN LANTUS (GLARGINE) 1 /0.01ml (100units/ml) SC SCH (07:00)
[2024-05-28] MEDS: SODIUM CHLORIDE 1 GM TAB PO ONE (07:53)
[2024-05-28] MEDS ORDERED: ACCU-CHEK COMFORT CURVE STRIP VI SCH (08:00)
[2024-05-28] MEDS ORDERED: InsuLIN REG 1unit/0.01ml Soln (100units/ml) SC SCH (08:00)
[2024-05-28] MEDS: ACCU-CHEK COMFORT CURVE STRIP VI SCH ×2 (08:06→19:40)
[2024-05-28] MEDS: InsuLIN REG 1unit/0.01ml Soln (100units/ml) SC SCH ×2 (08:36→19:46)
--- NOTE | 2024-05-28 08:52 | DVHINCON2 ---
Date Seen: May 28, 2024 Referring Physician ALEXANDRA Banks Reason for Consultation Palpitations History of Present Illness This is a 58-year-old male who presented to the emergency room with a chief complaint of generalized weakness. 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 He underwent a 12 lead electrocardiogram revealing an atrial fibrillation rhythm with rapid ventricular rate in the 130s bpm. Serial troponin levels are negative. Significant medical history includes unspecified atrial fibrillation on Eliquis/amiodarone therapy, congestive heart failure, status post single-chamber Medtronic AICD, history of CVA, hypertension, insulin-dependent diabetes mellitus, dyslipidemia, and methamphetamine use with latest use two days ago. Past Medical History Past medical history reviewed. No other significant than mentioned above. Past Surgical History AICD implantation Family History: Cardiovascular disease G8 MOTHER Family History Unknown family history. Social History Admits to methamphetamine use. Denies any use of alcohol or tobacco. Allergies: Coded Allergies: NO KNOWN ALLERGIES (Unverified , 10/15/20) Home Meds Active Scripts Insulin Lispro (Insulin Lispro) 100 Unit/Ml Inj, 10 UNIT IJ ACHS for 90 Days, #100 INJ Prov:BRITTA NICHOLSON MD 05/27/24 Insulin Glargine-Yfgn (Insulin Glargine) 100 Unit/Ml Inj, 20 UNIT SC DAILY for 90 Days, #100 INJ Prov:BRITTA NICHOLSON MD 05/27/24 Metoprolol Tartrate (LOPRESSOR TABLET) 50 Mg Tb, 100 MG PO BID, #120 TAB Prov:ERIKA BROWN MD 07/17/21 Blood Glucose Monitoring Suppl (Blood Glucose Monitoring W/Device) 1 Kit Kit, KIT XX ACHS, #125 Given glucometer with 30-day supply test strips, alcohol prep pads, lancets. Diagnosis diabetes mellitus type 2. Prov:ERIKA BROWN MD 07/16/21 Insulin Lispro (Insulin Lispro Kwikpen) 100 Unit/Ml Inj, 1 DOSE SC UD, #5 SYR Administer up to 40 units daily divided 3 times daily before meals and at bedtime per provided sliding scale. Prov:ERIKA BROWN MD 07/16/21 Insulin Glargine (Basaglar Kwikpen) 100 Unit/Ml Inj, 15 UNIT SC DAILY, #30 DOSE Prov:ERIKA BROWN MD 07/16/21 Rivaroxaban (Xarelto) 10 Mg Tab, 20 MG PO DAILY@DINNER, #30 TAB Prov:ERIKA BROWN MD 07/16/21 Sacubitril-Valsartan (Entresto 24-26 mg) 1 Tab Tab, 1 TAB PO DAILY, #30 TAB Measure blood pressure prior to every dose. Hold dose if the top number or your systolic blood pressure is below 130 mmHg Prov:ERIKA BROWN MD 07/16/21 Hydrocodone-Acetaminophen (Hydrocodone/Acetaminophen 5-325 mg) 1 Tab Tab, 1 TAB PO Q6HP PRN MDD pain 5-10, #20 TAB Prov:BISHOP BROWN MD 07/13/21 Amoxicillin & Pot Clavulanate (Amoxicillin/Potassium Cla) 875 Mg Tab, 875 MG PO BID, #20 TAB Prov:BISHOP BROWN MD 07/13/21 Amiodarone Hcl (Amiodarone Hcl) 200 Mg Tab, 200 MG PO BID, #60 TAB Prov:MARCO AREVALO MD 06/04/21 Reported Medications Furosemide (Furosemide) 40 Mg Tab, 40 MG PO DAILY for 30 Days 07/12/21 Bupropion Hcl (Bupropion Hcl Sr) 150 Mg Tab, 1 TAB PO BID 05/01/21 Atorvastatin Calcium (ATORVASTATIN CALCIUM) 40 Mg Tab, 1 TAB PO DAILY 05/01/21 Fluticasone Propionate (FLOVENT HFA 110Mcg INH) 110 Mcg Ih, 2 PUFF INH BID 05/01/21 Home Meds Home medications reviewed. Current Medications Current Medications Medications (Trade) Dose Ordered Sig/Charles Route PRN Reason Start Time Stop Time Status Last Admin Aspirin 81 mg DAILY PO 05/28/24 10:00 05/28/24 06:36 DC Atorvastatin Calcium (Lipitor) 10 mg HS PO 05/28/24 22:00 05/28/24 06:36 DC Furosemide (Lasix Injection) 40 mg DAILY IV 05/28/24 10:00 05/28/24 06:37 DC Diagnostic Test (Pha) (Accu-Chek Comfort Curve T) 1 strip IQ4HR 05/28/24 08:00 05/28/24 06:37 DC Insulin Human Regular (InsuLIN R) IQ4HR SC 05/28/24 08:00 05/28/24 06:37 DC Dextrose 50 ml UD PRN IV Blood Sugar LESS THAN 60 05/28/24 05:15 05/28/24 06:37 DC Sodium Chloride (Saline Lock Ns) 10 ml Q8HR IV 05/28/24 06:00 05/28/24 06:37 DC 05/28/24 06:36 Acetaminophen/ Hydrocodone Bitart (Gem 5/325MG Tab) 1 tab Q4HP PRN PO MODERATE PAIN (4-6 PAIN SCALE) 05/28/24 05:15 05/28/24 06:37 DC Ondansetron HCl (Zofran) 4 mg Q4HP PRN IV NAUSEA / VOMITING 05/28/24 05:15 05/28/24 06:37 DC Docusate Sodium (Colace Capsule) 100 mg BIDPRN PRN PO FOR CONSTIPATION 05/28/24 05:15 05/28/24 06:37 DC Acetaminophen (Tylenol Tablet) 650 mg Q6HP PRN PO PAIN SCALE 1-3 OR TEMP>100.4 05/28/24 05:15 05/28/24 06:37 DC Insulin Glargine (Lantus) 15 units BID@0700,2200 SC 05/28/24 07:00 05/28/24 06:37 DC Carvedilol (Coreg Tablet) 12.5 mg Q12HR PO 05/28/24 10:00 05/28/24 06:38 DC Hydralazine HCl (Apresoline Injection) 10 mg Q6HP PRN IV SBP>150 05/28/24 05:15 05/28/24 06:38 DC Nitroglycerin (Ntrostat Sublingual) 0.4 mg Q5MINP PRN SL FOR CHEST PAIN 05/28/24 05:45 05/28/24 06:38 DC Morphine Sulfate 2 mg Q30M PRN IV FOR CHEST PAIN 05/28/24 05:45 05/28/24 06:38 DC Aspirin 81 mg DAILY PO 05/28/24 10:00 Atorvastatin Calcium (Lipitor) 10 mg HS PO 05/28/24 22:00 Furosemide (Lasix Injection) 40 mg DAILY IV 05/28/24 10:00 Diagnostic Test (Pha) (Accu-Chek Comfort Curve T) 1 strip IQ4HR 05/28/24 08:00 05/28/24 08:06 Insulin Human Regular (InsuLIN R) IQ4HR SC 05/28/24 08:00 05/28/24 08:36 Dextrose 50 ml UD PRN IV Blood Sugar LESS THAN 60 05/28/24 06:45 Sodium Chloride (Saline Lock Ns) 10 ml Q8HR IV 05/28/24 14:00 Acetaminophen/ Hydrocodone Bitart (Gem 5/325MG Tab) 1 tab Q4HP PRN PO MODERATE PAIN (4-6 PAIN SCALE) 05/28/24 06:45 Ondansetron HCl (Zofran) 4 mg Q4HP PRN IV NAUSEA / VOMITING 05/28/24 06:45 Docusate Sodium (Colace Capsule) 100 mg BIDPRN PRN PO FOR CONSTIPATION 05/28/24 06:45 Acetaminophen (Tylenol Tablet) 650 mg Q6HP PRN PO PAIN SCALE 1-3 OR TEMP>100.4 05/28/24 06:45 Insulin Glargine (Lantus) 15 units BID@0700,2200 SC 05/28/24 07:00 05/28/24 06:46 Carvedilol (Coreg Tablet) 12.5 mg Q12HR PO 05/28/24 10:00 Hydralazine HCl (Apresoline Injection) 10 mg Q6HP PRN IV SBP>150 05/28/24 06:45 Nitroglycerin (Ntrostat Sublingual) 0.4 mg Q5MINP PRN SL FOR CHEST PAIN 05/28/24 06:45 Morphine Sulfate 2 mg Q30M PRN IV FOR CHEST PAIN 05/28/24 06:45 Review of Systems Constitutional: Generalized weakness Ears, Nose, & Throat: No symptom reported Eyes: No symptom reported Neurological: No symptoms reported Pulmonary/Respiratory: No symptom reported Cardiovascular: No symptom reported Gastrointestinal: No symptom reported Genitourinary: No symptom reported Musculoskeletal: No symptom reported Skin: No symptom reported Psychiatric: No symptom reported Endocrine: No symptom reported Hemotologic/Lymphatic: No symptom reported Vital Signs Vital Signs Date Time Temp Pulse Resp B/P (MAP) Pulse Ox O2 Delivery O2 Flow Rate FiO2 05/28/24 06:40 77 18 106/90 (95) 100 05/28/24 01:26 97.7 97.7 05/28/24 01:26 Room Air* 0 21 Physical Exam General Appearance: Cooperative. Chronically ill. Lethargic. Moderate acute distress. Head Exam: Normal inspection Neck Exam: Normal inspection. Non-tender. Normal alignment Pulmonary/Respiratory: Chest non-tender. Diminished bilateral breath sounds Cardiovascular/Chest: Irregularly irregular rate and rhythm. AFib with RVR. No murmurs. Peripheral Pulses: 2+ Radial (R). 2+ Radial (L). 2+ Pedal (R). 2+ Pedal (L) Abdominal Exam: Normal bowel sounds. Soft. Ankle Exam: Positive ankle edema Lower extremities: Positive lower extremity edema, 3+ Neuro/Mental Status: A&O x3. Coherent but poor historian Thoughts/Psych: Normal thought pattern. Appropriate mood and affect. Passive Appearance: Moderate acute distress appears lethargic Skin Exam: Normal inspection. Pale color. Warm. Dry Labs/Diagnostic Data Labs Test 05/27/24 21:25 05/27/24 20:30 Range/Units Troponin I High Sensitivity 39 </=54 ng/L White Blood Count 7.2 4.4-10.8 10^3/uL Red Blood Count 5.33 4.5-5.90 10^6/uL Hemoglobin 17.6 H 13.5-17.5 g/dL Hematocrit 51.0 41.0-53.0 % Mean Corpuscular Volume 95.8 80.0-100.0 fL Mean Corpuscular Hemoglobin 32.9 H 28.0-32.0 pg Mean Corpuscular Hemoglobin Concent 34.4 32.0-36.0 g/dL Red Cell Distribution Width 13.2 11.8-14.3 % Platelet Count 272 140-450 10^3/uL Mean Platelet Volume 8.4 6.9-10.8 fL Neutrophils (%) (Auto) 72.9 37.0-80.0 % Lymphocytes (%) (Auto) 17.9 10.0-50.0 % Monocytes (%) (Auto) 7.4 0.0-12.0 % Eosinophils (%) (Auto) 0.9 0.0-7.0 % Basophils (%) (Auto) 0.9 0.0-2.0 % Neutrophils # (Auto) 5.2 1.6-8.6 10 ^3/uL Lymphocytes # (Auto) 1.3 0.4-5.4 10 ^3/uL Monocytes # (Auto) 0.5 0-1.3 10 ^3/uL Eosinophils # (Auto) 0.1 0-0.8 10 ^3/uL Basophils # (Auto) 0.1 0-0.2 10 ^3/uL Nucleated Red Blood Cells 0.2 % Prothrombin Time 11.2 9.3-11.8 sec Prothrombin Time INR 1.06 0.9-1.15 Activated Partial Thromboplast Time 25.4 24.5-34.5 SEC Sodium Level 122 L 136-145 mmol/L Potassium Level 4.1 3.5-5.1 mmol/L Chloride Level 86 L 98-107 mmol/L Carbon Dioxide Level 25 20-31 mmol/L Anion Gap 11 5-15 Blood Urea Nitrogen 21 9-23 mg/dL Creatinine 2.16 H 0.700-1.30 mg/dL Glomerular Filtration Rate Calc 35 >90 mL/min BUN/Creatinine Ratio 9.7 L 10.0-20.0 Serum Glucose 816 *H 74-106 mg/dL Calcium Level 10.7 H 8.7-10.4 mg/dL Total Bilirubin 0.9 0.2-1.0 mg/dL Aspartate Amino Transferase (AST) 32 13-40 U/L Alanine Aminotransferase (ALT) 44 H 7-40 U/L Alkaline Phosphatase 151 H 46-116 U/L B-Type Natriuretic Peptide 243.95 0-100 pg/mL Total Protein 7.8 5.7-8.2 g/dL Albumin 4.7 3.2-4.8 g/dL Assessment Acute on chronic decompensated HFmrEF, 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 Heredia) The patient with decompensated CHF has been initiated on GDMT as well as preload and afterload reduction, uptitrate as necessary. Initiate therapeutic Lovenox and transition to Eliquis therapy when appropriate. Hold antiarrhythmic agents given the patient's poor medical therapy compliance. Replete electrolytes as necessary, K>4 and Mg>2. Continue beta-rex for rate control. Obtain AICD interrogation. Continue tight-glycemic control. Strongly counseled on drug abuse cessation and medical compliance. No invasive cardiac procedures are recommended at this time. Conservative medical management is indicated. Thank you for allowing us to participate in this patient's care. Please call if you have any questions or concerns. This medical document was created using an electronic medical record system with voice recognition software and computerized dictation system. Although this document has been carefully reviewed, there might still be some phonetic and typographical errors. Occasional wrong-word or ``sound-alike substitutions may have occurred due to the inherent limitations of voice recognition software. These areas are purely typographical due to imperfections of the software programs and do not reflect any compromise in the patient's medical care. Please read the chart carefully and recognize, using context, where these substitutions have occurred. Plan discussed with: Patient, Other Date of Service: May 28, 2024 Billing Provider: YUVAL HEREDIA MD Cardiology Common Codes: 44338-YINFBPG INP/OBS CARE (High) DELORIS MORALES EMBEDDED FIRMWARE ENGINEER May 28, 2024 08:52
[2024-05-28 09:40] LABS: Urine Bacteria None Seen /hpf (None Seen)
[2024-05-28 09:57] LABS: Calcium 9.5 mg/dL (8.7-10.4); Chloride 98 mmol/L (98-107)
[2024-05-28 09:58] LABS: Anion Gap 6 (5-15); Carbon Dioxide 29 mmol/L (20-31)
[2024-05-28] MEDS ORDERED: FUROSEMIDE 40 MG/4 ML VIAL IV SCH ×3 (10:00→18:00)
[2024-05-28] MEDS ORDERED: ASPirin 81 mg TAB PO SCH ×2 (10:00)
[2024-05-28] MEDS ORDERED: CARVEDILOL 12.5 MG TAB PO SCH ×2 (10:00)
[2024-05-28 10:03] LABS: Blood Urea Nitrogen 21 mg/dL (9-23); Triglycerides 95 mg/dL (< 150)
[2024-05-28 10:04] LABS: BUN/Creatinine Ratio 14.5 (10.0-20.0); Magnesium 2.2 mg/dL (1.6-2.6)
[2024-05-28 10:05] LABS: Cholesterol 155 mg/dL (< 200)
[2024-05-28 10:10] LABS: Glucose 321 mg/dL (74-106); HDL Cholesterol 39 mg/dL (40-59); LDL Cholesterol 108 mg/dL (< 100); Potassium 3.4 mmol/L (3.5-5.1); Sodium 133 mmol/L (136-145)
[2024-05-28 10:20] LABS: Urine Blood Negative /uL (Negative); Urine Clarity Clear (Clear); Urine Color Light-Yellow (Yellow); Urine Protein, UAD TRACE (Negative); Urine Specific Gravity 1.034 (1.001-1.035); Urine Squamous Epithelial Cell FEW /hpf (<5); Urine Urobilinogen Normal (Negative); Urine WBC 1 /hpf (0 - 3); Urine pH 5.5 (5.0-9.0)
--- NOTE | 2024-05-28 10:23 | DVHINCON2 ---
Date of service: May 28, 2024 Reason for Consultation Acute kidney injury History of Present Illness 58-year-old male with past medical history of atrial fibrillation, hypertension, congestive heart failure, diabetes presents to the hospital with palpitations patient is found to be in atrial fibrillation. Nephrology consulted due to elevated creatinine level. Based on previous hospitalization has no evidence of chronic kidney disease Past Medical History As above Allergies: Coded Allergies: NO KNOWN ALLERGIES (Unverified , 10/15/20) Home Meds Active Scripts Insulin Lispro (Insulin Lispro) 100 Unit/Ml Inj, 10 UNIT IJ ACHS for 90 Days, #100 INJ Prov:BRITTA NICHOLSON MD 05/27/24 Insulin Glargine-Yfgn (Insulin Glargine) 100 Unit/Ml Inj, 20 UNIT SC DAILY for 90 Days, #100 INJ Prov:BRITTA NICHOLSON MD 05/27/24 Metoprolol Tartrate (LOPRESSOR TABLET) 50 Mg Tb, 100 MG PO BID, #120 TAB Prov:ERIKA BROWN MD 07/17/21 Blood Glucose Monitoring Suppl (Blood Glucose Monitoring W/Device) 1 Kit Kit, KIT XX ACHS, #125 Given glucometer with 30-day supply test strips, alcohol prep pads, lancets. Diagnosis diabetes mellitus type 2. Prov:ERIKA BROWN MD 07/16/21 Insulin Lispro (Insulin Lispro Kwikpen) 100 Unit/Ml Inj, 1 DOSE SC UD, #5 SYR Administer up to 40 units daily divided 3 times daily before meals and at bedtime per provided sliding scale. Prov:ERIKA BROWN MD 07/16/21 Insulin Glargine (Basaglar Kwikpen) 100 Unit/Ml Inj, 15 UNIT SC DAILY, #30 DOSE Prov:ERIKA BROWN MD 07/16/21 Rivaroxaban (Xarelto) 10 Mg Tab, 20 MG PO DAILY@DINNER, #30 TAB Prov:ERIKA BROWN MD 07/16/21 Sacubitril-Valsartan (Entresto 24-26 mg) 1 Tab Tab, 1 TAB PO DAILY, #30 TAB Measure blood pressure prior to every dose. Hold dose if the top number or your systolic blood pressure is below 130 mmHg Prov:ERIKA BROWN MD 2/21/22 Hydrocodone-Acetaminophen (Hydrocodone/Acetaminophen 5-325 mg) 1 Tab Tab, 1 TAB PO Q6HP PRN MDD pain 5-10, #20 TAB Prov:BISHOP BROWN MD 07/13/21 Amoxicillin & Pot Clavulanate (Amoxicillin/Potassium Cla) 875 Mg Tab, 875 MG PO BID, #20 TAB Prov:BISHOP BROWN MD 07/13/21 Amiodarone Hcl (Amiodarone Hcl) 200 Mg Tab, 200 MG PO BID, #60 TAB Prov:MARCO AREVALO MD 06/04/21 Reported Medications Furosemide (Furosemide) 40 Mg Tab, 40 MG PO DAILY for 30 Days 07/12/21 Bupropion Hcl (Bupropion Hcl Sr) 150 Mg Tab, 1 TAB PO BID 05/01/21 Atorvastatin Calcium (ATORVASTATIN CALCIUM) 40 Mg Tab, 1 TAB PO DAILY 05/01/21 Fluticasone Propionate (FLOVENT HFA 110Mcg INH) 110 Mcg Ih, 2 PUFF INH BID 05/01/21 Current Medications Current Medications Medications (Trade) Dose Ordered Sig/Charles Route PRN Reason Start Time Stop Time Status Last Admin Atorvastatin Calcium (Lipitor) 10 mg HS PO 05/28/24 22:00 05/28/24 06:36 DC Atorvastatin Calcium (Lipitor) 10 mg HS PO 05/28/24 22:00 05/28/24 14:04 DC Enoxaparin Sodium (Lovenox) 90 mg Q12HR SC 05/28/24 22:00 05/28/24 14:08 DC Sacubitril/ Valsartan (Entresto 24-26 Mg tab) 1 tab BID PO 05/28/24 22:00 05/28/24 14:09 DC Empaglifozin (Jardiance) 10 mg DAILY PO 05/29/24 10:00 05/28/24 14:09 DC Spironolactone (Aldactone) 25 mg DAILY PO 05/29/24 10:00 05/28/24 14:09 DC Amiodarone HCl (Cordarone Tablet) 200 mg DAILY PO 05/29/24 10:00 05/28/24 14:09 DC Aspirin 81 mg DAILY PO 05/29/24 10:00 05/29/24 10:16 Atorvastatin Calcium (Lipitor) 10 mg HS PO 05/28/24 22:00 05/28/24 22:06 Sodium Chloride (Saline Lock Ns) 10 ml Q8HR IV 05/28/24 22:00 05/29/24 14:00 Insulin Glargine (Lantus) 15 units BID@0700,2200 SC 05/28/24 22:00 05/29/24 00:33 Carvedilol (Coreg Tablet) 12.5 mg Q12HR PO 05/28/24 22:00 05/29/24 10:20 Enoxaparin Sodium (Lovenox) 90 mg Q12HR SC 05/28/24 22:00 05/29/24 17:32 DC 05/29/24 10:15 Sacubitril/ Valsartan (Entresto 24-26 Mg tab) 1 tab BID PO 05/28/24 22:00 05/29/24 10:15 Empaglifozin (Jardiance) 10 mg DAILY PO 05/29/24 10:00 05/29/24 17:32 DC 05/29/24 10:18 Spironolactone (Aldactone) 25 mg DAILY PO 05/29/24 10:00 05/29/24 10:16 Amiodarone HCl (Cordarone Tablet) 200 mg DAILY PO 05/29/24 10:00 05/29/24 10:18 Enoxaparin Sodium (Lovenox) 60 mg Q12HR SC 05/29/24 22:00 Acetaminophen/ Hydrocodone Bitart (Kyle 5/325MG Tab) 1 tab Q4HP PRN PO MODERATE PAIN (4-6 PAIN SCALE) 05/29/24 17:30 Insulin Human Regular (InsuLIN R) CHANGE TO LOW DOSE/ MILD S... [facility] SC 05/29/24 18:00 05/29/24 18:21 Diagnostic Test (Pha) (Accu-Chek Comfort Curve T) 1 strip [facility] 05/29/24 18:00 05/29/24 18:13 Family History: Cardiovascular disease G8 MOTHER H&P Exam Vital Signs/I&O Vital Sign Date Time Temp Pulse Resp B/P (MAP) Pulse Ox O2 Delivery O2 Flow Rate FiO2 05/29/24 18:02 130/82 05/29/24 16:43 98.8 68 20 98 98.8 05/29/24 08:00 Room Air* 0 21 Intake and Output 05/28/24 05/29/24 19:00 07:00 # Voids 1 Physical Exam Middle-aged male Nonacute distress Abdomen is soft Irregular rate and rhythm Labs/Diagnostic Data Labs/Diagnostic Data Laboratory Tests Test 05/29/24 06:48 05/28/24 08:58 05/28/24 08:55 05/27/24 21:25 Range/Units White Blood Count 8.2 4.4-10.8 10^3/uL Red Blood Count 5.23 4.5-5.90 10^6/uL Hemoglobin 17.2 13.5-17.5 g/dL Hematocrit 48.5 41.0-53.0 % Mean Corpuscular Volume 92.9 80.0-100.0 fL Mean Corpuscular Hemoglobin 33.0 H 28.0-32.0 pg Mean Corpuscular Hemoglobin Concent 35.5 32.0-36.0 g/dL Red Cell Distribution Width 13.3 11.8-14.3 % Platelet Count 299 140-450 10^3/uL Mean Platelet Volume 7.7 6.9-10.8 fL Neutrophils (%) (Auto) 67.5 37.0-80.0 % Lymphocytes (%) (Auto) 23.5 10.0-50.0 % Monocytes (%) (Auto) 6.7 0.0-12.0 % Eosinophils (%) (Auto) 1.6 0.0-7.0 % Basophils (%) (Auto) 0.7 0.0-2.0 % Neutrophils # (Auto) 5.5 1.6-8.6 10 ^3/uL Lymphocytes # (Auto) 1.9 0.4-5.4 10 ^3/uL Monocytes # (Auto) 0.5 0-1.3 10 ^3/uL Eosinophils # (Auto) 0.1 0-0.8 10 ^3/uL Basophils # (Auto) 0.1 0-0.2 10 ^3/uL Nucleated Red Blood Cells 0.1 % Sodium Level 138 # 133 #L 136-145 mmol/L Potassium Level 2.9 L 3.4 L 3.5-5.1 mmol/L Chloride Level 99 98 # 98-107 mmol/L Carbon Dioxide Level 31 29 20-31 mmol/L Anion Gap 8 6 5-15 Blood Urea Nitrogen 26 H 21 9-23 mg/dL Creatinine 1.40 H 1.45 H 0.700-1.30 mg/dL Glomerular Filtration Rate Calc 59 56 >90 mL/min BUN/Creatinine Ratio 18.6 14.5 10.0-20.0 Serum Glucose 26 #*L 321 #H 74-106 mg/dL Calcium Level 9.7 9.5 8.7-10.4 mg/dL Total Bilirubin 0.5 0.2-1.0 mg/dL Aspartate Amino Transferase (AST) 32 13-40 U/L Alanine Aminotransferase (ALT) 31 7-40 U/L Alkaline Phosphatase 109 46-116 U/L B-Type Natriuretic Peptide 62.07 0-100 pg/mL Total Protein 6.3 5.7-8.2 g/dL Albumin 3.7 3.2-4.8 g/dL Urine Color Light-yellow Yellow Urine Clarity Clear Clear Urine pH 5.5 5.0-9.0 Urine Specific [place] 1.034 1.001-1.035 Urine Protein Trace H Negative Urine Ketones Negative Negative Urine Blood Negative Negative /uL Urine Nitrite Negative Negative Urine Bilirubin Negative Negative Urine Urobilinogen Normal Negative mg/dL Urine Leukocyte Esterase Negative Negative /uL Urine RBC 3 0 - 3 /hpf Urine WBC 1 0 - 3 /hpf Urine Squamous Epithelial Cells Few <5 /hpf Urine Bacteria None seen None Seen /hpf Urine Glucose 4+ H Normal mg/dL Urine Opiates Screen Neg NEGATIVE Urine Fentanyl Screen Neg NEGATIVE Urine Barbiturates Screen Neg NEGATIVE Urine Phencyclidine Screen Neg NEGATIVE Urine Amphetamines Screen Pos NEGATIVE Urine Benzodiazepines Screen Neg NEGATIVE Urine Cocaine Screen Neg NEGATIVE Urine Cannabinoids Screen Pos NEGATIVE Hemoglobin A1c > 14.0 H <5.7 % A1C Magnesium Level 2.2 1.6-2.6 mg/dL Triglycerides Level 95 < 150 mg/dL Cholesterol Level 155 < 200 mg/dL LDL Cholesterol 108 H < 100 mg/dL HDL Cholesterol 39 L 40-59 mg/dL Thyroid Stimulating Hormone (TSH) 0.99 0.55-4.78 uIU/mL Troponin I High Sensitivity 39 </=54 ng/L Test 05/27/24 20:30 Range/Units White Blood Count 7.2 4.4-10.8 10^3/uL Red Blood Count 5.33 4.5-5.90 10^6/uL Hemoglobin 17.6 H 13.5-17.5 g/dL Hematocrit 51.0 41.0-53.0 % Mean Corpuscular Volume 95.8 80.0-100.0 fL Mean Corpuscular Hemoglobin 32.9 H 28.0-32.0 pg Mean Corpuscular Hemoglobin Concent 34.4 32.0-36.0 g/dL Red Cell Distribution Width 13.2 11.8-14.3 % Platelet Count 272 140-450 10^3/uL Mean Platelet Volume 8.4 6.9-10.8 fL Neutrophils (%) (Auto) 72.9 37.0-80.0 % Lymphocytes (%) (Auto) 17.9 10.0-50.0 % Monocytes (%) (Auto) 7.4 0.0-12.0 % Eosinophils (%) (Auto) 0.9 0.0-7.0 % Basophils (%) (Auto) 0.9 0.0-2.0 % Neutrophils # (Auto) 5.2 1.6-8.6 10 ^3/uL Lymphocytes # (Auto) 1.3 0.4-5.4 10 ^3/uL Monocytes # (Auto) 0.5 0-1.3 10 ^3/uL Eosinophils # (Auto) 0.1 0-0.8 10 ^3/uL Basophils # (Auto) 0.1 0-0.2 10 ^3/uL Nucleated Red Blood Cells 0.2 % Prothrombin Time 11.2 9.3-11.8 sec Prothrombin Time INR 1.06 0.9-1.15 Activated Partial Thromboplast Time 25.4 24.5-34.5 SEC Sodium Level 122 L 136-145 mmol/L Potassium Level 4.1 3.5-5.1 mmol/L Chloride Level 86 L 98-107 mmol/L Carbon Dioxide Level 25 20-31 mmol/L Anion Gap 11 5-15 Blood Urea Nitrogen 21 9-23 mg/dL Creatinine 2.16 H 0.700-1.30 mg/dL Glomerular Filtration Rate Calc 35 >90 mL/min BUN/Creatinine Ratio 9.7 L 10.0-20.0 Serum Glucose 816 *H 74-106 mg/dL Calcium Level 10.7 H 8.7-10.4 mg/dL Total Bilirubin 0.9 0.2-1.0 mg/dL Aspartate Amino Transferase (AST) 32 13-40 U/L Alanine Aminotransferase (ALT) 44 H 7-40 U/L Alkaline Phosphatase 151 H 46-116 U/L Troponin I High Sensitivity 45 </=54 ng/L B-Type Natriuretic Peptide 243.95 0-100 pg/mL Total Protein 7.8 5.7-8.2 g/dL Albumin 4.7 3.2-4.8 g/dL Assessment Acute kidney injury hemodynamically mediated in setting of tachycardia Atrial fibrillation rapid ventricular response Hypertension CHF Diabetes Obtain urinalysis Obtain urine protein creatinine ratio Cardiology Rate controlled Last echo was in 2021 recommend repeat echo Strict Is&Os Low-salt diet Plan discussed with: Patient CHINMAY ZUÑIGA MD May 28, 2024 10:23
[2024-05-28 10:26] LABS: Cannabinoid Screen, Urine Pos (NEGATIVE)
[2024-05-28 10:35] LABS: Amphetamine Screen, Urine Pos (NEGATIVE); Barbiturate Scree,Urine Neg (NEGATIVE); Benzodiazephine Screen, Urine Neg (NEGATIVE); Cocaine Screen, Urine Neg (NEGATIVE); Opiate Scree,Urine Neg (NEGATIVE); Phencyclidine Screen, Urine Neg (NEGATIVE)
[2024-05-28] MEDS ORDERED: SODIUM CHLOR 0.9% PF (SALINE LOCK) 10ML VIAL/SYR IV SCH (14:00)
[2024-05-28 14:33] VITALS: BP 111/86; PULSE 50; RESP 17; TEMP 97.9; O2SAT 100
[2024-05-28 17:22] VITALS: BP 126/99; PULSE 138; RESP 11; O2SAT 100
[2024-05-28 19:32] VITALS: PULSE 152; RESP 14; O2SAT 98
[2024-05-28] MEDS: POTASSIUM CHL 20 Meq TABLET PO ONE (19:34)
[2024-05-28] MEDS: FUROSEMIDE 40 MG/4 ML VIAL IV SCH (19:34)
[2024-05-28] MEDS: ENOXAPARIN SOD 100 MG/1 ML SYRINGE SC ONE (19:40)
[2024-05-28] MEDS: AMIODARONE HCL 200 MG TAB PO ONE (20:30)
[2024-05-28] MEDS ORDERED: ENOXAPARIN SOD 100 MG/1 ML SYRINGE SC SCH (22:00)
[2024-05-28] MEDS ORDERED: SACUBITRIL-VALSARTAN 24mg/26mg TAB PO SCH (22:00)
[2024-05-28] MEDS ORDERED: ATORVASTATIN 20 MG TAB PO SCH ×2 (22:00)
[2024-05-28] MEDS: SACUBITRIL-VALSARTAN 24mg/26mg TAB PO SCH (22:05)
[2024-05-28] MEDS: CARVEDILOL 12.5 MG TAB PO SCH (22:05)
[2024-05-28] MEDS: ATORVASTATIN 20 MG TAB PO SCH (22:06)
[2024-05-28] MEDS: ENOXAPARIN SOD 100 MG/1 ML SYRINGE SC SCH (22:06)
[2024-05-28 23:23] VITALS: BP 150/79; PULSE 68; TEMP 97.5; O2SAT 97
[2024-05-29] VITALS (7 sets, daily range): BP systolic 97–127; BP diastolic 59–96; PULSE 50–136; RESP 17–20; TEMP 97.3–98.8; O2SAT 95–100
[2024-05-29] MEDS: INSULIN LANTUS (GLARGINE) 1 /0.01ml (100units/ml) SC SCH (00:33)
--- NOTE | 2024-05-29 06:05 | DVH ---
CHEST RADIOGRAPH Indication: CHF Technique: Single frontal view of the chest was obtained COMPARISON: XY CHEST XRAY 1 VIEW on DOS: 05/27/24, CHEST XRAY 1 VIEW on DOS: 07/12/21 FINDINGS: Lines and Tubes: Left chest wall AICD. Lungs: Mild congestion Pleura: Trace right pleural effusion. No pneumothorax. Cardiomediastinal contours: Cardiomegaly Bones: Unremarkable IMPRESSION: No significant interval change.
[2024-05-29 07:05] LABS: Basophils # (auto) 0.1 10 ^3/uL (0-0.2); Basophils % (auto) 0.7 % (0.0-2.0); Eosinophils # (auto) 0.1 10 ^3/uL (0-0.8); Eosinophils % (auto) 1.6 % (0.0-7.0); Hematocrit 48.5 % (41.0-53.0); Hemoglobin 17.2 g/dL (13.5-17.5); Lymphocytes # (auto) 1.9 10 ^3/uL (0.4-5.4); Lymphocytes % (auto) 23.5 % (10.0-50.0); Mean Corpuscular Hgb Conc. 35.5 g/dL (32.0-36.0); Mean Corpuscular Volume 92.9 fL (80.0-100.0); Monocytes # (auto) 0.5 10 ^3/uL (0-1.3); Monocytes % (auto) 6.7 % (0.0-12.0); Neutrophils # (auto) 5.5 10 ^3/uL (1.6-8.6); Neutrophils % (auto) 67.5 % (37.0-80.0); Nucleated Red Blood Cells % 0.1 %; Platelet Count (auto) 299 10^3/uL (140-450); Red Blood Cells 5.23 10^6/uL (4.5-5.90); Red Cell Distribution Width 13.3 % (11.8-14.3); White Blood Cell 8.2 10^3/uL (4.4-10.8)
[2024-05-29 07:31] LABS: Alanine Aminotransferase 31 U/L (7-40); Albumin 3.7 g/dL (3.2-4.8); Alkaline Phosphatase 109 U/L (46-116); Anion Gap 8 (5-15); Aspartate Aminotransferase 32 U/L (13-40); BUN/Creatinine Ratio 18.6 (10.0-20.0); Calcium 9.7 mg/dL (8.7-10.4); Carbon Dioxide 31 mmol/L (20-31); Chloride 99 mmol/L (98-107); Sodium 138 mmol/L (136-145)
[2024-05-29 07:32] LABS: Bilirubin, Total 0.5 mg/dL (0.2-1.0); Total Protein 6.3 g/dL (5.7-8.2)
[2024-05-29 08:27] LABS: Blood Urea Nitrogen 26 mg/dL (9-23); Potassium 2.9 mmol/L (3.5-5.1)
[2024-05-29 08:28] LABS: Glucose 26 mg/dL (74-106)
--- NOTE | 2024-05-29 09:39 | ECG ---
[facility] Test Date: 2024-05-29 Test Time: 04:42:43 Pat Name: MAX MCARTHUR Department: Respiratoy Room: 0285T Gender: M Ramp Manager: JUAN : 1965 Requested By: ELIZABETH WASSERMAN Order Number: [id number] Reading MD: Measurements Intervals [place] Rate: 133 P: 0 OH: 0 QRS: 9 QRSD: 121 T: 248 QT: 293 QTc: 436 Interpretive Statements Atrial fibrillation Paired ventricular premature complexes IVCD, consider atypical RBBB Repol abnrm suggests ischemia, lateral leads Please click the below link to view image of tracing.
[2024-05-29] MEDS ORDERED: SPIRONOLACTONE 25 MG TAB PO SCH (10:00)
[2024-05-29] MEDS ORDERED: AMIODARONE HCL 200 MG TAB PO SCH (10:00)
[2024-05-29] MEDS ORDERED: EMPAGLIFLOZIN 10 MG TAB PO SCH (10:00)
[2024-05-29] MEDS: SPIRONOLACTONE 25 MG TAB PO SCH (10:16)
[2024-05-29] MEDS: ASPirin 81 mg TAB PO SCH (10:16)
[2024-05-29] MEDS: AMIODARONE HCL 200 MG TAB PO SCH (10:18)
[2024-05-29] MEDS: EMPAGLIFLOZIN 10 MG TAB PO SCH (10:18)
--- NOTE | 2024-05-29 12:34 | DVHPN2 ---
Consult Progress Note Subjective Other Systems: The patient remains in atrial fibrillation with controlled rate at time of assessment. No cardiac events reported Objective vital signs Vital Sign Date Time Temp Pulse Resp B/P (MAP) Pulse Ox O2 Delivery O2 Flow Rate FiO2 05/29/24 10:20 68 103/77 05/29/24 09:00 97.6 20 100 97.6 05/28/24 23:23 Room Air* 0 21 medications Current Medications Medications Dose Ordered Sig/Charles Route Start Time Stop Time Status Last Admin Dose Admin Aspirin 81 mg DAILY PO 05/29/24 10:00 05/29/24 10:16 81 MG Atorvastatin Calcium 10 mg HS PO 05/28/24 22:00 05/28/24 22:06 10 MG Diagnostic Test (Pha) 1 strip IQ4HR 05/28/24 16:00 05/29/24 10:13 1 STRIP Insulin Human Regular IQ4HR SC 05/28/24 16:00 05/29/24 00:37 20 UNITS Dextrose 50 ml UD PRN IV 05/28/24 14:15 Sodium Chloride 10 ml Q8HR IV 05/28/24 22:00 05/29/24 06:00 10 ML Acetaminophen/ Hydrocodone Bitart 1 tab Q4HP PRN PO 05/28/24 14:15 Docusate Sodium 100 mg BIDPRN PRN PO 05/28/24 14:15 Acetaminophen 650 mg Q6HP PRN PO 05/28/24 14:15 Insulin Glargine 15 units BID@0700,2200 SC 05/28/24 22:00 05/29/24 00:33 15 UNITS Carvedilol 12.5 mg Q12HR PO 05/28/24 22:00 05/29/24 10:20 12.5 MG Hydralazine HCl 10 mg Q6HP PRN IV 05/28/24 14:15 Furosemide 40 mg BIDD IV 05/28/24 18:00 05/28/24 19:34 40 MG Enoxaparin Sodium 90 mg Q12HR SC 05/28/24 22:00 05/29/24 10:15 90 MG Sacubitril/ Valsartan 1 tab BID PO 05/28/24 22:00 05/29/24 10:15 1 TAB Empaglifozin 10 mg DAILY PO 05/29/24 10:00 05/29/24 10:18 10 MG Spironolactone 25 mg DAILY PO 05/29/24 10:00 05/29/24 10:16 25 MG Amiodarone HCl 200 mg DAILY PO 05/29/24 10:00 05/29/24 10:18 200 MG Examination: GENERAL:Normal, LUNGS:Normal, CVS:Normal, NEURO:Normal laboratory and microbiology Laboratory Tests 05/29/24 06:48 Test 05/29/24 06:48 Range/Units Serum Glucose 26 #*L 74-106 mg/dL Problem List/Assessment/Plan Problem List/Assessment/Plan Acute on chronic decompensated HFmrEF, 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 Heredia) The patient with decompensated CHF has been initiated on GDMT as well as preload and afterload reduction, uptitrate as necessary. Initiate therapeutic Lovenox and transition to Eliquis therapy when appropriate. Hold antiarrhythmic agents given the patient's poor medical therapy compliance. Replete electrolytes as necessary, K>4 and Mg>2. Continue beta-rex for rate control. Obtain AICD interrogation-still pending. Continue tight-glycemic control. Strongly counseled on drug abuse cessation and medical compliance. No invasive cardiac procedures are recommended at this time. Conservative medical management is indicated. Thank you for allowing us to participate in this patient's care. Please call if you have any questions or concerns. This medical document was created using an electronic medical record system with voice recognition software and computerized dictation system. Although this document has been carefully reviewed, there might still be some phonetic and typographical errors. Occasional wrong-word or ``sound-alike substitutions may have occurred due to the inherent limitations of voice recognition software. These areas are purely typographical due to imperfections of the software programs and do not reflect any compromise in the patient's medical care. Please read the chart carefully and recognize, using context, where these substitutions have occurred. Plan discussed with: Patient Date of Service: May 29, 2024 Billing Provider: NORA BEASLEY Common Visit Codes: [id number] INP/OBS CARE(HIGH) NORA BEASLEY [facility] May 29, 2024 12:34
--- NOTE | 2024-05-29 17:37 | DVHPN2 ---
Subjective denies any pain or palpitations today Changes from previous H/P or p: No Changes Eyes: No Pain, No Vision change, No Conjunctivae inflammation, No Eyelid inflammation; Other (Blurry vision); No Redness ENT: No Ear pain, No Ear discharge, No Nose pain, No Nose discharge, No Nose congestion, No Mouth pain, No Mouth swelling, No Throat pain, No Throat swelling, No Other Cardiovascular: Chest Pain; No Palpitations, No Orthopnea, No Paroxysmal Noc. Dyspnea, No Edema, No Lt Headedness; Other (Dizzy spells) Respiratory: Cough; No Dry; Shortness of breath, SOB with excertion; No Wheezing, No Hemoptysis, No Pleuritic Pain, No Sputum; Other (SOB at rest) Gastrointestinal: Nausea, Vomiting, Abdominal Pain; No Diarrhea, No Constipation, No Melena, No Hematochezia, No Other Genitourinary: No Dysuria, No Frequency, No Incontinence, No Hematuria, No Retention, No Other Musculoskeletal: No other, No neck pain, No shoulder pain, No arm pain, No back pain, No hand pain, No leg pain, No foot pain Skin: No Rash, No Lesions, No Jaundice, No Bruising, No Other Objective Vitals Vital Signs Date Time Temp Pulse Resp B/P (MAP) Pulse Ox O2 Delivery O2 Flow Rate FiO2 05/29/24 16:43 98.8 68 20 109/59 (76) 98 98.8 05/29/24 08:00 Room Air* 0 21 Intake/Output Intake and Output 05/29/24 07:00 # Voids 1 General Appearance: Alert, Oriented X3, Cooperative, No acute distress Lungs: Clear to auscultation Cardiovascular: Regular rate, Normal S1, Normal S2 Abdomen: Normal bowel sounds, Soft, No tenderness, No hepatospenomegaly Musculoskeletal: Normal sensory function, Normal motor function Neuro: Normal gait, Normal speech, Strength at 5/5 X4 ext, Normal tone, S ensation intact, Cranial nerves 3-12 NL, Reflexes 2+ Psych/Mental Status: Mental status NL Medications Current Medications Medications Dose Ordered Sig/Charles Route Start Time Stop Time Status Last Admin Dose Admin Aspirin 81 mg DAILY PO 05/29/24 10:00 05/29/24 10:16 81 MG Atorvastatin Calcium 10 mg HS PO 05/28/24 22:00 05/28/24 22:06 10 MG Diagnostic Test (Pha) 1 strip IQ4HR 05/28/24 16:00 05/29/24 12:50 1 STRIP Dextrose 50 ml UD PRN IV 05/28/24 14:15 Sodium Chloride 10 ml Q8HR IV 05/28/24 22:00 05/29/24 06:00 10 ML Docusate Sodium 100 mg BIDPRN PRN PO 05/28/24 14:15 Acetaminophen 650 mg Q6HP PRN PO 05/28/24 14:15 Insulin Glargine 15 units BID@0700,2200 SC 05/28/24 22:00 05/29/24 00:33 15 UNITS Carvedilol 12.5 mg Q12HR PO 05/28/24 22:00 05/29/24 10:20 12.5 MG Hydralazine HCl 10 mg Q6HP PRN IV 05/28/24 14:15 Furosemide 40 mg BIDD IV 05/28/24 18:00 05/28/24 19:34 40 MG Sacubitril/ Valsartan 1 tab BID PO 05/28/24 22:00 05/29/24 10:15 1 TAB Spironolactone 25 mg DAILY PO 05/29/24 10:00 05/29/24 10:16 25 MG Amiodarone HCl 200 mg DAILY PO 05/29/24 10:00 05/29/24 10:18 200 MG Enoxaparin Sodium 60 mg Q12HR SC 05/29/24 22:00 UNV Acetaminophen/ Hydrocodone Bitart 1 tab Q4HP PRN PO 05/29/24 17:30 UNV Insulin Human Regular CHANGE TO LOW DOSE/ MILD S... [facility] SC 05/29/24 18:00 UNV Laboratory Results Laboratory Tests 05/29/24 06:48 Chemistry Test 05/29/24 06:48 Albumin 3.7 g/dL (3.2-4.8) Calcium Level 9.7 mg/dL (8.7-10.4) Total Protein 6.3 g/dL (5.7-8.2) Cardiac Markers Test 05/29/24 06:48 B-Type Natriuretic Peptide 62.07 pg/mL (0-100) LFT Test 05/29/24 06:48 Alanine Aminotransferase (ALT) 31 U/L (7-40) Alkaline Phosphatase 109 U/L (46-116) Aspartate Amino Transferase (AST) 32 U/L (13-40) Total Bilirubin 0.5 mg/dL (0.2-1.0) Urinalysis Test 05/28/24 08:58 Urine Color Light-yellow (Yellow) Urine Clarity Clear (Clear) Urine pH 5.5 (5.0-9.0) Urine Specific [place] 1.034 (1.001-1.035) Urine Protein Trace (Negative) H Urine Ketones Negative (Negative) Urine Blood Negative /uL (Negative) Urine Nitrite Negative (Negative) Urine Bilirubin Negative (Negative) Urine Urobilinogen Normal mg/dL (Negative) Urine Leukocyte Esterase Negative /uL (Negative) Urine RBC 3 /hpf (0 - 3) Urine WBC 1 /hpf (0 - 3) Urine Squamous Epithelial Cells Few /hpf (<5) Urine Bacteria None seen /hpf (None Seen) Urine Glucose 4+ mg/dL (Normal) H Labs and/or images reviewed: Labs reviewed by me, Image(s) reviewed by me Assessment/Plan Assessment/Plan palpitations/atrial fibrillation- with rvr---stable htn stable chf- slow improvement ckd3 hypokalemia replace dm with hypoglycemia- adjust meds/per nursing she checked after critical call and sugar was 137 Plan discussed with: Patient, Other My Orders Orders - ELIZABETH WASSERMAN MD Procedure Category Date Status Time Potassium Er Tablet PHA 05/29/24 Logged (Klor-Con Tablet) 17:30 Enoxaparin Sodium PHA 05/29/24 Logged (Lovenox) 22:00 Hydrocodone-Acet PHA 05/29/24 Logged 5/325mg Tab ([place] 17:30 Insulin R (Human) PHA 05/29/24 Logged (Insulin R) 18:00 Date of Service: May 29, 2024 Billing Provider: ELIZABETH WASSERMAN MD Common Visit Codes: [id number] INP/OBS CARE(MOD) ELIZABETH WASSERMAN MD May 29, 2024 17:37
[2024-05-29] MEDS: POTASSIUM CHL 20 Meq TABLET PO ONE (18:07)
[2024-05-29] MEDS: ACCU-CHEK COMFORT CURVE STRIP VI SCH (18:13)
[2024-05-29] MEDS: InsuLIN REG 1unit/0.01ml Soln (100units/ml) SC SCH (18:21)
--- NOTE | 2024-05-29 18:27 | DVHPN2 ---
Progress Note Date Seen: May 29, 2024 Medical Necessity Reason Pt with a Central, PICC or Fol: No Subjective Review of Systems: CVS:Abnormal Objective vital signs Vital Sign Date Time Temp Pulse Resp B/P (MAP) Pulse Ox O2 Delivery O2 Flow Rate FiO2 05/29/24 18:02 130/82 05/29/24 16:43 98.8 68 20 98 98.8 05/29/24 08:00 Room Air* 0 21 medications Current Medications Medications Dose Ordered Sig/Charles Route Start Time Stop Time Status Last Admin Dose Admin Aspirin 81 mg DAILY PO 05/29/24 10:00 05/29/24 10:16 81 MG Atorvastatin Calcium 10 mg HS PO 05/28/24 22:00 05/28/24 22:06 10 MG Dextrose 50 ml UD PRN IV 05/28/24 14:15 Sodium Chloride 10 ml Q8HR IV 05/28/24 22:00 05/29/24 14:00 10 ML Docusate Sodium 100 mg BIDPRN PRN PO 05/28/24 14:15 Acetaminophen 650 mg Q6HP PRN PO 05/28/24 14:15 Insulin Glargine 15 units BID@0700,2200 SC 05/28/24 22:00 05/29/24 00:33 15 UNITS Carvedilol 12.5 mg Q12HR PO 05/28/24 22:00 05/29/24 10:20 12.5 MG Hydralazine HCl 10 mg Q6HP PRN IV 05/28/24 14:15 Furosemide 40 mg BIDD IV 05/28/24 18:00 05/29/24 18:02 40 MG Sacubitril/ Valsartan 1 tab BID PO 05/28/24 22:00 05/29/24 10:15 1 TAB Spironolactone 25 mg DAILY PO 05/29/24 10:00 05/29/24 10:16 25 MG Amiodarone HCl 200 mg DAILY PO 05/29/24 10:00 05/29/24 10:18 200 MG Enoxaparin Sodium 60 mg Q12HR SC 05/29/24 22:00 Acetaminophen/ Hydrocodone Bitart 1 tab Q4HP PRN PO 05/29/24 17:30 Insulin Human Regular CHANGE TO LOW DOSE/ MILD S... [facility] SC 05/29/24 18:00 05/29/24 18:21 8 UNITS Diagnostic Test (Pha) 1 strip [facility] 05/29/24 18:00 05/29/24 18:13 1 STRIP Examination: GENERAL:Normal, LUNGS:Normal, CVS:Abnormal, ABDOMEN:Normal laboratory and microbiology Laboratory Tests 05/29/24 06:48 Test 05/29/24 06:48 Range/Units Serum Glucose 26 #*L 74-106 mg/dL Problem List/Assessment/Plan Problem List/Assessment/Plan Acute kidney injury hemodynamically mediated in setting of tachycardia Atrial fibrillation rapid ventricular response Hypertension CHF Diabetes hypokalemia replace potassium Cardiology currently on aldactone and entresto monitor potassium level Rate controlled Last echo was in 2021 recommend repeat echo Strict Is&Os Low-salt diet Plan discussed with: Patient CHINMAY ZUÑIGA MD May 29, 2024 18:27
--- NOTE | 2024-05-29 19:21 | DVHSR ---
APPROVED REPORT EXAM: Two-dimensional and M-mode echocardiogram with Doppler, color Doppler and Bubble Study. Blood Pressure: 95/40 mmHg INDICATION afib/ meth abuse/ chf RISK FACTORS Height: 5'11, Weight: 166 DIMENSIONS LVDd4.6 (3.8-5.7cm)LA (2D)4.3 (1.9-4.0cm)Aortic Root4.0 (2.0-3.7cm) LVDs3.6 (2.5-4.0cm)LA (MM) (1.9-4.0cm)Aortic Cusp Exc1.1 (1.5-2.0cm) EF (%) 45.0 (55-70%)Rt. Atrium5.2 (1.9-4.0cm)Asc. Aorta3.6 cm IVSd1.3 (0.7-1.1cm)RV (D) (1.8-2.4cm) PWd1.3 (0.7-1.1cm) Mitral Valve MitralMitral Stenosis E wavem/sMV Mean GR.1mmHg A wavem/sMV Peak GR.2mmHg E/A ratio0.02D MVAcm2 Aortic Valve Aortic ValveAortic Stenosis V10.93m/Chavo Mean GR.2mmHg V21.04m/Chavo Peak GR.4mmHg LVOT Diameter2.1 (1.8-2.4cm)Doppler AVA3.10cm2 Tricuspid Valve TR Velocity2.21m/s [id number] LEFT VENTRICLE The left ventricle is normal size. There is mild concentric left ventricular hypertrophy. The left ventricle function is mildly decreased, LVEF is 45-50%. There is global hypokinesis of the left ventricle. RIGHT VENTRICLE The right ventricle is grossly normal size. The right ventricular systolic function is normal. There is a pacemaker lead in the right ventricle. ATRIA The left atrium is severely dilated. The right atrium is moderately dilated. MITRAL VALVE The mitral valve is grossly normal. There is no mitral valve regurgitation noted. PULMONIC VALVE The pulmonic valve is grossly normal in structure and function. There is no pulmonic valvular regurgitation. TRICUSPID VALVE The tricuspid valve is grossly normal. There is mild tricuspid regurgitation. AORTIC VALVE The aortic valve is trileaflet. No aortic regurgitation is present. No evidence of aortic valve stenosis. GREAT VESSELS Aortic sinus of Valsalva are mild to moderate dilated. PERICARDIAL EFFUSION The pericardium appears normal. Conclusion Compared to prior echocardiogram from 05/2021: Atrial chambers with worsening dilation, tricuspid regu rgitation improved from moderate to mild. The left ventricle is normal size. There is mildconcentric left ventricular hypertrophy. The left keisha tricle function is mildly decreased, LVEF is 45-50%. The right ventricular systolic function is normal. The left atrium is severely dilated. The right atrium is moderately dilated. No significant valvular abnormalities. Aortic sinus of Valsalva are mild to moderate dilated. The pericardium appears normal.
[2024-05-29] MEDS: ENOXAPARIN SOD 100 MG/1 ML SYRINGE SC SCH (21:05)
[2024-05-30] VITALS (7 sets, daily range): BP systolic 86–104; BP diastolic 51–73; PULSE 60–112; RESP 16–18; TEMP 97.1–98.2; O2SAT 91–100
[2024-05-30 06:53] LABS: Basophils # (auto) 0 10 ^3/uL (0-0.2); Basophils % (auto) 0.1 % (0.0-2.0); Eosinophils # (auto) 0.1 10 ^3/uL (0-0.8); Hemoglobin 16.1 g/dL (13.5-17.5); Lymphocytes # (auto) 1.8 10 ^3/uL (0.4-5.4); Lymphocytes % (auto) 26.1 % (10.0-50.0); Mean Corpuscular Hgb Conc. 34.2 g/dL (32.0-36.0); Mean Corpuscular Volume 93.7 fL (80.0-100.0); Monocytes # (auto) 0.9 10 ^3/uL (0-1.3); Monocytes % (auto) 13.2 % (0.0-12.0); Neutrophils # (auto) 4.2 10 ^3/uL (1.6-8.6); Neutrophils % (auto) 59.6 % (37.0-80.0); Nucleated Red Blood Cells % 0.1 %; Platelet Count (auto) 253 10^3/uL (140-450); Red Blood Cells 5.01 10^6/uL (4.5-5.90); Red Cell Distribution Width 13.2 % (11.8-14.3); White Blood Cell 7.1 10^3/uL (4.4-10.8)
[2024-05-30 07:25] LABS: Anion Gap 7 (5-15); Carbon Dioxide 29 mmol/L (20-31); Chloride 101 mmol/L (98-107); Potassium 3.7 mmol/L (3.5-5.1); Sodium 137 mmol/L (136-145)
[2024-05-30 07:31] LABS: BUN/Creatinine Ratio 18.3 (10.0-20.0); Blood Urea Nitrogen 23 mg/dL (9-23); Glucose 86 mg/dL (74-106)
--- NOTE | 2024-05-30 12:13 | DVHPN2 ---
Progress Note Date Seen: May 30, 2024 Medical Necessity Reason Pt with a Central, PICC or Fol: No Subjective Patient reports: No new complaints Objective vital signs Vital Sign Date Time Temp Pulse Resp B/P (MAP) Pulse Ox O2 Delivery O2 Flow Rate FiO2 05/30/24 09:02 73 112/79 05/30/24 09:00 97.4 18 91 97.4 05/30/24 08:00 Nasal Cannula* 2 28 Total Intake and Output 05/29/24 05/29/24 05/30/24 14:59 22:59 06:59 Intake Total 1650 ml 200 ml Output Total 400 ml Balance 1650 ml -200 ml medications Current Medications Medications Dose Ordered Sig/Charles Route Start Time Stop Time Status Last Admin Dose Admin Aspirin 81 mg DAILY PO 05/29/24 10:00 05/30/24 09:00 81 MG Atorvastatin Calcium 10 mg HS PO 05/28/24 22:00 05/29/24 21:03 10 MG Dextrose 50 ml UD PRN IV 05/28/24 14:15 Sodium Chloride 10 ml Q8HR IV 05/28/24 22:00 05/30/24 06:03 10 ML Docusate Sodium 100 mg BIDPRN PRN PO 05/28/24 14:15 Acetaminophen 650 mg Q6HP PRN PO 05/28/24 14:15 Insulin Glargine 15 units BID@0700,2200 SC 05/28/24 22:00 05/29/24 21:18 15 UNITS Carvedilol 12.5 mg Q12HR PO 05/28/24 22:00 05/30/24 09:02 12.5 MG Hydralazine HCl 10 mg Q6HP PRN IV 05/28/24 14:15 Furosemide 40 mg BIDD IV 05/28/24 18:00 05/29/24 18:02 40 MG Sacubitril/ Valsartan 1 tab BID PO 05/28/24 22:00 05/30/24 09:00 1 TAB Spironolactone 25 mg DAILY PO 05/29/24 10:00 05/30/24 09:00 25 MG Amiodarone HCl 200 mg DAILY PO 05/29/24 10:00 05/30/24 09:03 200 MG Enoxaparin Sodium 60 mg Q12HR SC 05/29/24 22:00 05/30/24 09:03 60 MG Acetaminophen/ Hydrocodone Bitart 1 tab Q4HP PRN PO 05/29/24 17:30 Diagnostic Test (Pha) 1 strip [facility] 05/29/24 18:00 05/30/24 09:03 1 STRIP Insulin Human Regular CHANGE TO LOW DOSE/ MILD SS... [facility] SC 05/30/24 12:15 UNV Examination: GENERAL:Normal, CVS:Abnormal laboratory and microbiology Laboratory Tests 05/30/24 06:15 Test 05/30/24 06:15 Range/Units Serum Glucose 86 74-106 mg/dL Problem List/Assessment/Plan Problem List/Assessment/Plan Acute kidney injury hemodynamically mediated in setting of tachycardia Atrial fibrillation rapid ventricular response Hypertension CHF 40% Diabetes hypokalemia Cardiology currently on aldactone and entresto monitor potassium level. rec to hold if BP is low Rate controlled Strict Is&Os Low-salt diet AMINTA has resolved will sign off case and obtain outpatient renal clinic Plan discussed with: Patient CHINMAY ZUÑIGA MD May 30, 2024 12:13
[2024-05-30] MEDS ORDERED: InsuLIN REG 1unit/0.01ml Soln (100units/ml) SC SCH (12:15)
--- NOTE | 2024-05-30 12:15 | DVHPN2 ---
Subjective denies any pain or palpitations today Changes from previous H/P or p: No Changes Eyes: No Pain, No Vision change, No Conjunctivae inflammation, No Eyelid inflammation; Other (Blurry vision); No Redness ENT: No Ear pain, No Ear discharge, No Nose pain, No Nose discharge, No Nose congestion, No Mouth pain, No Mouth swelling, No Throat pain, No Throat swelling, No Other Cardiovascular: Chest Pain; No Palpitations, No Orthopnea, No Paroxysmal Noc. Dyspnea, No Edema, No Lt Headedness; Other (Dizzy spells) Respiratory: Cough; No Dry; Shortness of breath, SOB with excertion; No Wheezing, No Hemoptysis, No Pleuritic Pain, No Sputum; Other (SOB at rest) Gastrointestinal: Nausea, Vomiting, Abdominal Pain; No Diarrhea, No Constipation, No Melena, No Hematochezia, No Other Genitourinary: No Dysuria, No Frequency, No Incontinence, No Hematuria, No Retention, No Other Musculoskeletal: No other, No neck pain, No shoulder pain, No arm pain, No back pain, No hand pain, No leg pain, No foot pain Skin: No Rash, No Lesions, No Jaundice, No Bruising, No Other Objective Vitals Vital Signs Date Time Temp Pulse Resp B/P (MAP) Pulse Ox O2 Delivery O2 Flow Rate FiO2 05/30/24 09:02 73 112/79 05/30/24 09:00 97.4 18 91 97.4 05/30/24 08:00 Nasal Cannula* 2 28 Intake/Output Intake and Output 05/30/24 07:00 Intake Total 1850 ml Output Total 400 ml Balance 1450 ml Intake Oral 1850 ml Output Urine Total 400 ml # Voids 2 # Bowel Movements 2 General Appearance: Alert, Oriented X3, Cooperative, No acute distress Lungs: Clear to auscultation Cardiovascular: Regular rate, Normal S1, Normal S2 Abdomen: Normal bowel sounds, Soft, No tenderness, No hepatospenomegaly Musculoskeletal: Normal sensory function, Normal motor function Neuro: Normal gait, Normal speech, Strength at 5/5 X4 ext, Normal tone, S ensation intact, Cranial nerves 3-12 NL, Reflexes 2+ Psych/Mental Status: Mental status NL Medications Current Medications Medications Dose Ordered Sig/Charles Route Start Time Stop Time Status Last Admin Dose Admin Aspirin 81 mg DAILY PO 05/29/24 10:00 1/5/25 09:00 81 MG Atorvastatin Calcium 10 mg HS PO 05/28/24 22:00 05/29/24 21:03 10 MG Dextrose 50 ml UD PRN IV 05/28/24 14:15 Sodium Chloride 10 ml Q8HR IV 05/28/24 22:00 05/30/24 06:03 10 ML Docusate Sodium 100 mg BIDPRN PRN PO 05/28/24 14:15 Acetaminophen 650 mg Q6HP PRN PO 05/28/24 14:15 Insulin Glargine 15 units BID@0700,2200 SC 05/28/24 22:00 05/29/24 21:18 15 UNITS Carvedilol 12.5 mg Q12HR PO 05/28/24 22:00 05/30/24 09:02 12.5 MG Hydralazine HCl 10 mg Q6HP PRN IV 05/28/24 14:15 Furosemide 40 mg BIDD IV 05/28/24 18:00 05/29/24 18:02 40 MG Sacubitril/ Valsartan 1 tab BID PO 05/28/24 22:00 05/30/24 09:00 1 TAB Spironolactone 25 mg DAILY PO 05/29/24 10:00 05/30/24 09:00 25 MG Amiodarone HCl 200 mg DAILY PO 05/29/24 10:00 05/30/24 09:03 200 MG Enoxaparin Sodium 60 mg Q12HR SC 05/29/24 22:00 05/30/24 09:03 60 MG Acetaminophen/ Hydrocodone Bitart 1 tab Q4HP PRN PO 05/29/24 17:30 Diagnostic Test (Pha) 1 strip [facility] 05/29/24 18:00 05/30/24 09:03 1 STRIP Insulin Human Regular CHANGE TO LOW DOSE/ MILD SS... [facility] SC 05/30/24 12:15 UNV Laboratory Results Laboratory Tests 05/30/24 06:15 Chemistry Test 05/30/24 06:15 Calcium Level 9.0 mg/dL (8.7-10.4) Urinalysis Test 05/28/24 08:58 Urine Color Light-yellow (Yellow) Urine Clarity Clear (Clear) Urine pH 5.5 (5.0-9.0) Urine Specific [place] 1.034 (1.001-1.035) Urine Protein Trace (Negative) H Urine Ketones Negative (Negative) Urine Blood Negative /uL (Negative) Urine Nitrite Negative (Negative) Urine Bilirubin Negative (Negative) Urine Urobilinogen Normal mg/dL (Negative) Urine Leukocyte Esterase Negative /uL (Negative) Urine RBC 3 /hpf (0 - 3) Urine WBC 1 /hpf (0 - 3) Urine Squamous Epithelial Cells Few /hpf (<5) Urine Bacteria None seen /hpf (None Seen) Urine Glucose 4+ mg/dL (Normal) H Labs and/or images reviewed: Labs reviewed by me, Image(s) reviewed by me Assessment/Plan Assessment/Plan palpitations/atrial fibrillation- with rvr---stable htn stable chf- slow improvement/ECHO REVIWED dilated/drug induced cardiomyopathy meth addiction- advised of complications/discussed rehab- states uses this daily and not looking to rehab no signs of withdrawl at this time ckd3 hypokalemia normal dm with hypoglycemia- resolved/ adjusted meds/per nursing she checked after critical call and sugar was 137 drug department worker consult- to help with dc plans pt not interested in drug rehab/ Plan discussed with: Patient, Other My Orders Orders - ELIZABETH WASSERMAN MD Procedure Category Date Status Time Enoxaparin Sodium PHA 05/29/24 In Process (Lovenox) 22:00 Hydrocodone-Acet PHA 05/29/24 In Process 5/325mg Tab ([place] 17:30 Insulin R (Human) PHA 05/30/24 Logged (Insulin R) 12:15 Date of Service: May 30, 2024 Billing Provider: ELIZABETH WASSERMAN MD Common Visit Codes: [id number] INP/OBS CARE(MOD) ELIZABETH WASSERMAN MD May 30, 2024 12:15
[2024-05-30] MEDS: InsuLIN REG 1unit/0.01ml Soln (100units/ml) SC SCH (13:34)
--- NOTE | 2024-05-30 15:25 | DVHPN2 ---
Consult Progress Note Date Seen: May 30, 2024 Subjective Review of Systems: CVS:Normal, RESPIRATORY:Normal, NEURO:Abnormal Other Systems: C/o some dizziness Objective vital signs Vital Sign Date Time Temp Pulse Resp B/P (MAP) Pulse Ox O2 Delivery O2 Flow Rate FiO2 05/30/24 13:00 98.2 76 16 96/56 (69) 100 98.2 05/30/24 08:00 Nasal Cannula* 2 28 Total Intake and Output 05/29/24 05/29/24 05/30/24 15:00 23:00 07:00 Intake Total 1650 ml 200 ml Output Total 400 ml Balance 1650 ml -200 ml medications Current Medications Medications Dose Ordered Sig/Charles Route Start Time Stop Time Status Last Admin Dose Admin Aspirin 81 mg DAILY PO 05/29/24 10:00 05/30/24 09:00 81 MG Atorvastatin Calcium 10 mg HS PO 05/28/24 22:00 05/29/24 21:03 10 MG Dextrose 50 ml UD PRN IV 05/28/24 14:15 Sodium Chloride 10 ml Q8HR IV 05/28/24 22:00 05/30/24 13:35 10 ML Docusate Sodium 100 mg BIDPRN PRN PO 05/28/24 14:15 Acetaminophen 650 mg Q6HP PRN PO 05/28/24 14:15 Insulin Glargine 15 units BID@0700,2200 SC 05/28/24 22:00 05/29/24 21:18 15 UNITS Carvedilol 12.5 mg Q12HR PO 05/28/24 22:00 05/30/24 09:02 12.5 MG Hydralazine HCl 10 mg Q6HP PRN IV 05/28/24 14:15 Furosemide 40 mg BIDD IV 05/28/24 18:00 05/29/24 18:02 40 MG Sacubitril/ Valsartan 1 tab BID PO 05/28/24 22:00 05/30/24 09:00 1 TAB Spironolactone 25 mg DAILY PO 05/29/24 10:00 05/30/24 09:00 25 MG Amiodarone HCl 200 mg DAILY PO 05/29/24 10:00 05/30/24 09:03 200 MG Enoxaparin Sodium 60 mg Q12HR SC 05/29/24 22:00 05/30/24 09:03 60 MG Acetaminophen/ Hydrocodone Bitart 1 tab Q4HP PRN PO 05/29/24 17:30 Diagnostic Test (Pha) 1 strip WMHS 05/29/24 18:00 05/30/24 13:35 1 STRIP Insulin Human Regular ACHS SC 05/30/24 12:00 05/30/24 13:34 4 UNITS Examination: LUNGS:Normal, CVS:Normal (A-fib controlled rate), NEURO:Normal laboratory and microbiology Laboratory Tests 05/30/24 06:15 Test 05/30/24 06:15 Range/Units Serum Glucose 86 74-106 mg/dL Problem List/Assessment/Plan Problem List/Assessment/Plan Acute on chronic decompensated HFmrEF, NYHA Class IV 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 Fischer) The patient with decompensated CHF has been initiated on GDMT as well as preload and afterload reduction, up-titrate as necessary. Continue therapeutic Lovenox and transition to Eliquis therapy when appropriate. Strongly recommend to hold antiarrhythmic agents given the patient's poor medical therapy compliance with AC therapy. Replete electrolytes as necessary, K>4 and Mg>2. Continue beta- rex for rate control. AICD interrogation-completed and unremarkable. Continue tight-glycemic control. Strongly counseled on drug abuse cessation and medical compliance. No invasive cardiac procedures are recommended at this time. Conservative medical management is indicated. There is no further cardiac work-up indicated at this time. Kindly call in need of further assistance. Thank you for allowing us to participate in this patient's care. This medical document was created using an electronic medical record system with voice recognition software and computerized dictation system. Although this document has been carefully reviewed, there might still be some phonetic and typographical errors. Occasional wrong-word or ``sound-alike substitutions may have occurred due to the inherent limitations of voice recognition software. These areas are purely typographical due to imperfections of the software programs and do not reflect any compromise in the patient's medical care. Please read the chart carefully and recognize, using context, where these substitutions have occurred. Plan discussed with: Patient, Other Date of Service: May 30, 2024 Billing Provider: YUVAL FISCHER MD Cardiology Common Codes: [id number](DELORIS Flannery [facility] May 30, 2024 15:25
[2024-05-30] MEDS: ACETAMINOPHEN 325 MG TAB PO PRN (20:56)
[2024-05-30] MEDS: SACUBITRIL-VALSARTAN 24mg/26mg TAB PO SCH (20:57)
[2024-05-30] MEDS: CARVEDILOL 3.125 MG TAB PO SCH (20:58)
[2024-05-31] VITALS (8 sets, daily range): BP systolic 91–120; BP diastolic 45–83; PULSE 43–120; RESP 16–19; TEMP 97.4–98.9; O2SAT 97–100
[2024-05-31 06:51] LABS: Calcium 8.8 mg/dL (8.7-10.4); Chloride 99 mmol/L (98-107); Potassium 3.8 mmol/L (3.5-5.1)
[2024-05-31 06:52] LABS: Anion Gap 8 (5-15); Carbon Dioxide 26 mmol/L (20-31)
[2024-05-31 06:57] LABS: Blood Urea Nitrogen 23 mg/dL (9-23)
[2024-05-31 07:01] LABS: Glucose 174 mg/dL (74-106); Sodium 133 mmol/L (136-145)
[2024-05-31] MEDS: SPIRONOLACTONE 25 MG TAB PO SCH (09:21)
[2024-05-31] MEDS: EMPAGLIFLOZIN 10 MG TAB PO SCH (09:22)
--- NOTE | 2024-05-31 14:15 | ECG ---
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
--- NOTE | 2024-05-31 17:56 | DVHPN2 ---
Subjective Patient reports having generalized weakness. Reviewed: Care Plan, H&P, Labs, Medications Changes from previous H/P or p: No Changes General: Per HPI Eyes: No Pain, No Vision change, No Conjunctivae inflammation, No Eyelid inflammation; Other (Blurry vision); No Redness ENT: No Ear pain, No Ear discharge, No Nose pain, No Nose discharge, No Nose congestion, No Mouth pain, No Mouth swelling, No Throat pain, No Throat swelling, No Other Cardiovascular: Chest Pain; No Palpitations, No Orthopnea, No Paroxysmal Noc. Dyspnea, No Edema, No Lt Headedness; Other (Dizzy spells) Respiratory: Cough; No Dry; Shortness of breath, SOB with excertion; No Wheezing, No Hemoptysis, No Pleuritic Pain, No Sputum; Other (SOB at rest) Gastrointestinal: Nausea, Vomiting, Abdominal Pain; No Diarrhea, No Constipation, No Melena, No Hematochezia, No Other Genitourinary: No Dysuria, No Frequency, No Incontinence, No Hematuria, No Retention, No Other Musculoskeletal: No other, No neck pain, No shoulder pain, No arm pain, No back pain, No hand pain, No leg pain, No foot pain Skin: No Rash, No Lesions, No Jaundice, No Bruising, No Other Objective Vitals Vital Signs Date Time Temp Pulse Resp B/P (MAP) Pulse Ox O2 Delivery O2 Flow Rate FiO2 05/31/24 17:19 98/53 05/31/24 17:00 97.4 44 16 97 97.4 05/31/24 08:00 Room Air* 0 21 Intake/Output Intake and Output 05/31/24 07:00 Intake Total 2880 ml Output Total 2000 ml Balance 880 ml Intake Oral 2880 ml Output Urine Total 2000 ml General Appearance: Alert, Oriented X3, Cooperative, No acute distress Lungs: Clear to auscultation Cardiovascular: Regular rate, Normal S1, Normal S2 Abdomen: Normal bowel sounds, Soft, No tenderness, No hepatospenomegaly Musculoskeletal: Normal sensory function, Normal motor function Neuro: Normal gait, Normal speech, Strength at 5/5 X4 ext, Normal tone, S ensation intact, Cranial nerves 3-12 NL, Reflexes 2+ Psych/Mental Status: Mental status NL Medications Current Medications Medications Dose Ordered Sig/Charles Route Start Time Stop Time Status Last Admin Dose Admin Aspirin 81 mg DAILY PO 05/29/24 10:00 05/31/24 09:20 81 MG Atorvastatin Calcium 10 mg HS PO 05/28/24 22:00 05/30/24 20:57 10 MG Dextrose 50 ml UD PRN IV 05/28/24 14:15 Sodium Chloride 10 ml Q8HR IV 05/28/24 22:00 05/31/24 17:10 10 ML Docusate Sodium 100 mg BIDPRN PRN PO 05/28/24 14:15 Acetaminophen 650 mg Q6HP PRN PO 05/28/24 14:15 05/30/24 20:56 650 MG Hydralazine HCl 10 mg Q6HP PRN IV 05/28/24 14:15 Furosemide 40 mg BIDD IV 05/28/24 18:00 05/30/24 17:31 40 MG Amiodarone HCl 200 mg DAILY PO 05/29/24 10:00 05/31/24 09:20 200 MG Acetaminophen/ Hydrocodone Bitart 1 tab Q4HP PRN PO 05/29/24 17:30 Diagnostic Test (Pha) 1 strip WMHS 05/29/24 18:00 05/31/24 17:10 1 STRIP Insulin Human Regular ACHS SC 05/30/24 12:00 05/31/24 17:13 4 UNITS Carvedilol 3.125 mg Q12HR PO 05/30/24 22:00 05/31/24 09:21 3.125 MG Sacubitril/ Valsartan 0.5 tab BID PO 05/30/24 22:00 05/31/24 09:23 0.5 TAB Spironolactone 12.5 mg DAILY PO 05/31/24 10:00 05/31/24 09:21 12.5 MG Empaglifozin 10 mg DAILY PO 05/31/24 10:00 05/31/24 09:22 10 MG Apixaban 5 mg BID PO 05/31/24 22:00 UNV Laboratory Results Laboratory Tests 05/30/24 06:15 05/31/24 05:43 Chemistry Test 05/31/24 05:43 Calcium Level 8.8 mg/dL (8.7-10.4) Urinalysis Test 05/28/24 08:58 Urine Color Light-yellow (Yellow) Urine Clarity Clear (Clear) Urine pH 5.5 (5.0-9.0) Urine Specific [place] 1.034 (1.001-1.035) Urine Protein Trace (Negative) H Urine Ketones Negative (Negative) Urine Blood Negative /uL (Negative) Urine Nitrite Negative (Negative) Urine Bilirubin Negative (Negative) Urine Urobilinogen Normal mg/dL (Negative) Urine Leukocyte Esterase Negative /uL (Negative) Urine RBC 3 /hpf (0 - 3) Urine WBC 1 /hpf (0 - 3) Urine Squamous Epithelial Cells Few /hpf (<5) Urine Bacteria None seen /hpf (None Seen) Urine Glucose 4+ mg/dL (Normal) H Labs and/or images reviewed: Labs reviewed by me, Image(s) reviewed by me Assessment/Plan Assessment/Plan Impression: -atrial fibrillation with rapid ventricular rate, rate still uncontrolled -diabetes mellitus, labile blood sugar with periods of hypoglycemia -acute on chronic systolic heart failure with history of ICD placement -primary hypertension -? Homelessness -methamphetamine use -dyslipidemia Plan: -cardiology consultation: Recommendations reviewed -change Lantus to 15 units q.h.s., continue regular insulin sliding scale -social service consultation for discharge planning -Lifestyle modification education: 10 minutes spent with the patient discussing the need to stop using illicit drugs -continue goal-directed medical therapy -transitioned from Lovenox to Eliquis -DC planning for tomorrow Total time spent with patient discussing and formulating plan of care: 35 minutes. This medical document was created using an electronic medical record system with [employer] dictation system. Although this document has been carefully reviewed, there may still be some phonetic and typographical errors. These areas are purely typographical due to imperfections of the software programs, and do not reflect any compromise in the patient's medical care. Plan discussed with: Patient, Other (RN) My Orders Orders - DAMIEN FLORES NP Procedure Category Date Status Time Apixaban (Eliquis) PHA 05/31/24 Logged 22:00 * Planner Scheduler CONS 05/31/24 Transmitted Consult 17:45 Basic Metabolic Panel LAB 06/01/24 Verified 04:00 Date of Service: May 31, 2024 Billing Provider: DAMIEN FLORES NP Common Visit Codes: [id number] INP/OBS CARE(HIGH) DAMIEN FLORES NP May 31, 2024 17:56
[2024-05-31] MEDS: APIXABAN 5 MG TAB PO SCH (21:53)
[2024-06-01 00:52] VITALS: BP 98/56; PULSE 85; RESP 19; TEMP 97.7; O2SAT 100
[2024-06-01 05:00] VITALS: BP 119/83; PULSE 73; RESP 19; TEMP 97.6; O2SAT 100
[2024-06-01] MEDS: HYDROcodone-ACET 5/325MG TAB PO PRN (05:56)
[2024-06-01 08:00] VITALS: PULSE 85; O2SAT 100
[2024-06-01 09:00] VITALS: BP 118/63; PULSE 47; RESP 16; TEMP 97.4; O2SAT 97
[2024-06-01 09:26] LABS: Chloride 102 mmol/L (98-107); Potassium 3.7 mmol/L (3.5-5.1); Sodium 137 mmol/L (136-145)
[2024-06-01 09:27] LABS: Anion Gap 6 (5-15); Calcium 8.9 mg/dL (8.7-10.4); Carbon Dioxide 29 mmol/L (20-31)
[2024-06-01 09:32] LABS: BUN/Creatinine Ratio 17.1 (10.0-20.0); Blood Urea Nitrogen 21 mg/dL (9-23)
[2024-06-01 09:42] LABS: Glucose 143 mg/dL (74-106)
[2024-06-01 12:51] VITALS: BP 134/95; PULSE 59; RESP 18; TEMP 97.4; O2SAT 100
--- NOTE | 2024-06-01 15:14 | DVHDS2 ---
Discharge Summary Date of Admission May 28, 2024 at 05:33 Date of Discharge: Jun 01, 2024 Admitting Diagnosis AFib with RVR Labs/Diagnostic Data: Laboratory Results Test 06/01/24 07:37 05/30/24 06:15 05/29/24 06:48 05/28/24 08:58 Sodium Level 137 mmol/L (136-145) Potassium Level 3.7 mmol/L (3.5-5.1) Chloride Level 102 mmol/L (98-107) Carbon Dioxide Level 29 mmol/L (20-31) Anion Gap 6 (5-15) Blood Urea Nitrogen 21 mg/dL (9-23) Creatinine 1.23 mg/dL (0.700-1.30) Glomerular Filtration Rate Calc 68 mL/min (>90) BUN/Creatinine Ratio 17.1 (10.0-20.0) Serum Glucose 143 mg/dL (74-106) Calcium Level 8.9 mg/dL (8.7-10.4) White Blood Count 7.1 10^3/uL (4.4-10.8) Red Blood Count 5.01 10^6/uL (4.5-5.90) Hemoglobin 16.1 g/dL (13.5-17.5) Hematocrit 47.0 % (41.0-53.0) Mean Corpuscular Volume 93.7 fL (80.0-100.0) Mean Corpuscular Hemoglobin 32.0 pg (28.0-32.0) Mean Corpuscular Hemoglobin Concent 34.2 g/dL (32.0-36.0) Red Cell Distribution Width 13.2 % (11.8-14.3) Platelet Count 253 10^3/uL (140-450) Mean Platelet Volume 8.0 fL (6.9-10.8) Neutrophils (%) (Auto) 59.6 % (37.0-80.0) Lymphocytes (%) (Auto) 26.1 % (10.0-50.0) Monocytes (%) (Auto) 13.2 % (0.0-12.0) Eosinophils (%) (Auto) 1.0 % (0.0-7.0) Basophils (%) (Auto) 0.1 % (0.0-2.0) Neutrophils # (Auto) 4.2 10 ^3/uL (1.6-8.6) Lymphocytes # (Auto) 1.8 10 ^3/uL (0.4-5.4) Monocytes # (Auto) 0.9 10 ^3/uL (0-1.3) Eosinophils # (Auto) 0.1 10 ^3/uL (0-0.8) Basophils # (Auto) 0 10 ^3/uL (0-0.2) Nucleated Red Blood Cells 0.1 % Total Bilirubin 0.5 mg/dL (0.2-1.0) Aspartate Amino Transferase (AST) 32 U/L (13-40) Alanine Aminotransferase (ALT) 31 U/L (7-40) Alkaline Phosphatase 109 U/L (46-116) B-Type Natriuretic Peptide 62.07 pg/mL (0-100) Total Protein 6.3 g/dL (5.7-8.2) Albumin 3.7 g/dL (3.2-4.8) Urine Color Light-yellow (Yellow) Urine Clarity Clear (Clear) Urine pH 5.5 (5.0-9.0) Urine Specific [place] 1.034 (1.001-1.035) Urine Protein Trace (Negative) Urine Ketones Negative (Negative) Urine Blood Negative /uL (Negative) Urine Nitrite Negative (Negative) Urine Bilirubin Negative (Negative) Urine Urobilinogen Normal mg/dL (Negative) Urine Leukocyte Esterase Negative /uL (Negative) Urine RBC 3 /hpf (0 - 3) Urine WBC 1 /hpf (0 - 3) Urine Squamous Epithelial Cells Few /hpf (<5) Urine Bacteria None seen /hpf (None Seen) Urine Glucose 4+ mg/dL (Normal) Urine Opiates Screen Neg (NEGATIVE) Urine Fentanyl Screen Neg (NEGATIVE) Urine Barbiturates Screen Neg (NEGATIVE) Urine Phencyclidine Screen Neg (NEGATIVE) Urine Amphetamines Screen Pos (NEGATIVE) Urine Benzodiazepines Screen Neg (NEGATIVE) Urine Cocaine Screen Neg (NEGATIVE) Urine Cannabinoids Screen Pos (NEGATIVE) Test 05/28/24 08:55 05/27/24 21:25 05/27/24 20:30 Hemoglobin A1c > 14.0 % A1C (<5.7) Magnesium Level 2.2 mg/dL (1.6-2.6) Triglycerides Level 95 mg/dL (< 150) Cholesterol Level 155 mg/dL (< 200) LDL Cholesterol 108 mg/dL (< 100) HDL Cholesterol 39 mg/dL (40-59) Thyroid Stimulating Hormone (TSH) 0.99 uIU/mL (0.55-4.78) Troponin I High Sensitivity 39 ng/L (</=54) Prothrombin Time 11.2 sec (9.3-11.8) Prothrombin Time INR 1.06 (0.9-1.15) Activated Partial Thromboplast Time 25.4 SEC (24.5-34.5) Other Laboratory Tests 06/01/24 07:37 05/30/24 06:15 Brief Hx & Hospital Course: History of Present Illness The patient is a 58-year-old male with multiple past medical history including AFib, CHF, CVA, diabetes mellitus, and hypertension who presented to [facility] ED with complaint of palpitations. Patient reports symptoms progressively get worse with shortness of breath, chest pain, dizzy spells, weakness, fatigue, abdominal pain, nausea, vomiting, getting worse that prompted this visit. Patient was seen and evaluated in the ED, laboratory data shows WBC 7.2, platelets 272, sodium 122, potassium 4.1, BUN 21, creatinine 2.16, GFR 35, calcium 10.7, glucose 816, AST 32, ALT 44, anion gap 11, troponin 39, blood pressure 158/91, heart rate 72, temperature 97.7 F, O2 saturation 98% on oxygen. Chest x-ray show no acute disease. Patient was given 10 units regular insulin, please see medication orders section in the computer. On my assessment, patient denied chest pain, no headache, no dizziness, no diaphoresis, no diarrhea, no nausea, vomiting, no, no chills. Patient was admitted further evaluation and medical management. Course of hospitalization: Patient was given follow up with the narcotic back on beta-rex therapy to control atrial fibrillation. IV diuresis as well as goal-directed medical therapy was initiated. Patient was x-ray has improved. He is now on room air. Social service consultation was placed for any discharge needs. At this time the patient was wishing to be discharged home. 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 All questions answered Physical examination General: Alert and Oriented x3. No acute distress. Well-nourished. Eyes: EOMI. Anicteric. HENT: Moist mucous membranes. Lungs: Clear to auscultation bilaterally. No accessory muscle use. Cardiovascular: Regular rate and rhythm. No murmur. No JVD. Abdomen: Soft, non-tender and non-distended. No palpable masses. Extremities: No edema. Non-tender. Skin: No rashes or lesions. Warm. Neurologic: No focal neurological deficits. CN II-XII grossly intact, but not individually tested. Psychiatric: Cooperative. Appropriate mood and affect. Total time spent with patient discussing and formulating plan of care: 35 minutes. This medical document was created using an electronic medical record system with [employer] dictation system. Although this document has been carefully reviewed, there may still be some phonetic and typographical errors. These areas are purely typographical due to imperfections of the software programs, and do not reflect any compromise in the patient's medical care. Consults/Reason for consult Cardiology: Atrial fibrillation, decompensated heart failure Condition at Discharge: Fair Final Diagnosis/Problems List Acute on Chronic Decompensated HF Secondary Diagnosis: -diabetes mellitus, labile blood sugar with periods of hypoglycemia -acute on chronic systolic heart failure with history of ICD placement -primary hypertension -Homelessness -methamphetamine use -dyslipidemia Discharge Disposition: Home Discharge Instruct/Medications Diet: Consistent carbohydrate, Cardiac 2g Na,low cholest Diet comment: Fluid restriction 1400ml/day Activity: Light activity Follow Up/Referral: Pcp in 1-2 weeks. Dc clinic in 1 week Medications: Continue all home medications 36 Discharge Statement: "Patient was advised to return to the ER or call 911 if any headaches, dizziness, shortness of breath, chest pain, abdominal pain, bleeding, fevers, or worsening of medical condition. Patient was counseled about treatment plan, medications, possible side effects, patientverbalized understanding. All questions were answered to the best of my ability. This discharge took greater then 30 minutes in planning, reviewing documentation, counseling the patient, and discussing with other team members." ASSESSMENT ASSESSMENT Assessment Acute on Chronic Decompensated HF Date of Service: Jun 01, 2024 Billing Provider: DAMIEN FLORES NP Common Visit Codes: 49761-ODR/OBS DISCH DAY >30min DAMIEN FLORES NP Jun 01, 2024 15:14
[2024-06-01 15:43] VITALS: BP 130/91; PULSE 80; RESP 17; TEMP 36.3; O2SAT 100
--- NOTE | 2024-06-02 09:25 | ECG ---
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
== END 2024-06-01 16:30 | disposition home or self-care (01) | DRG 420 ==
LOC: ER 20:18 → TELE 05-28 05:33 → TELE-WESTW 05-28 23:08
PROVIDERS: ADMIT Nurse Practitioner Family; ATTEND Nurse Practitioner Acute Care
DX: E11.65 Type 2 diabetes mellitus with hyperglycemia (principal); N17.0 Acute kidney failure with tubular necrosis; I50.23 Acute on chronic systolic (congestive) heart failure; E11.649 Type 2 diabetes mellitus with hypoglycemia without coma; I13.0 Hypertensive heart and chronic kidney disease with heart failure and stage 1 through stage 4 chronic kidney disease, or unspecified chronic kidney disease; E87.1 Hypo-osmolality and hyponatremia; I42.7 Cardiomyopathy due to drug and external agent; I48.91 Unspecified atrial fibrillation; I25.10 Atherosclerotic heart disease of native coronary artery without angina pectoris; E87.6 Hypokalemia; E11.22 Type 2 diabetes mellitus with diabetic chronic kidney disease; E78.5 Hyperlipidemia, unspecified; N18.30 Chronic kidney disease, stage 3 unspecified; F15.10 Other stimulant abuse, uncomplicated; Z59.00 Homelessness unspecified; Z79.01 Long term (current) use of anticoagulants; Z86.73 Personal history of transient ischemic attack (TIA), and cerebral infarction without residual deficits; Z95.810 Presence of automatic (implantable) cardiac defibrillator; Z91.199 Patient's noncompliance with other medical treatment and regimen due to unspecified reason; Z82.49 Family history of ischemic heart disease and other diseases of the circulatory system; Z79.4 Long term (current) use of insulin; Z79.899 Other long term (current) drug therapy
CPT/HCPCS: 36415; 71045; 80048; 80053; 80061; 80307; 81001; 82962; 83036; 83735; 83880; 84443; 84484; 85025; 85610; 85730; 93005; 93306; 99291; G0378; J1815; J2405